=== PATIENT | male | born 1955 | race African-American/Black ===

== ENCOUNTER 2016-11-21 15:59 | Inpatient (IN) | payer MEDICAID, MEDICARE ==
[~2016-11-21] VITALS: Ht 172.7 cm; Wt 86.6 kg
[~2016-11-21 15:59] MED LIST: APIX5TAB PO; ATOR10TA PO; BRIM5DRO3 EACHEYE; DORZ10DR13 EACHEYE; METF-494 PO; TAMS-3 PO; TRAV5DRO EACHEYE
[2016-11-21 16:50] LABS: BASOPHILS % (AUTO) 0.5 % (0.0-2.0); EOSINOPHILS # (AUTO) 0.1 K/uL (0.0-0.7); EOSINOPHILS % (AUTO) 1.5 % (0.0-7.0); HEMATOCRIT 36.5 % (40.0-50.0); HEMOGLOBIN 11.7 g/dL (14.0-18.0); LYMPHOCYTES # (AUTO) 1.5 K/uL (0.8-4.8); LYMPHOCYTES % (AUTO) 16.3 % (20.5-51.5); MEAN CORPUSCULAR HEMOGLOBIN 25.4 uug (27.0-31.0); MEAN CORPUSCULAR HGB CONC 32 g/dL (32.0-37.0); MONOCYTES # (AUTO) 0.6 K/uL (0.1-1.30); MONOCYTES % (AUTO) 6.4 % (0.0-11.0); NEUTROPHILS # (AUTO) 7.2 K/uL (1.8-8.9); NEUTROPHILS % (AUTO) 75.3 % (38.5-71.5); PLATELET COUNT (AUTO) 256 K/uL (150-450); RED BLOOD CELL COUNT(AUTO) 4.62 MIL/uL (4.70-6.10); RED CELL DISTRIBUTION WIDTH 17.5 % (11.5-14.5); WHITE BLOOD COUNT (AUTO) 9.4 K/uL (4.0-11.2)
[2016-11-21 16:58] LABS: CALCIUM 9.5 mg/dL (8.5-10.1); CREATININE 1.3 mg/dL (0.6-1.3); POTASSIUM 4.1 mmol/L (3.5-5.1)
[2016-11-21 17:12] LABS: ALBUMIN 3.8 g/dL (3.4-5.0); BILIRUBIN,DIRECT 0.1 mg/dL (0.0-0.2); BILIRUBIN,TOTAL 0.5 mg/dL (0.2-1.0); TOTAL PROTEIN, SERUM 7.9 g/dL (6.4-8.2)
[2016-11-21 17:52] LABS: ANISOCYTOSIS 1+
[2016-11-21 17:53] LABS: OVALOCYTES 1+
--- NOTE | 2016-11-21 17:57 | NUR ---
Attempted to give report, 2nd Floor RN not available for report at this time, call back pending.
--- NOTE | 2016-11-21 18:16 | NUR ---
2nd floor called to give report, RN is assisting in an ongoing Code Blue, unable to take report at this time. Call back pending.
--- NOTE | 2016-11-21 18:37 | NUR ---
Pt. admitted to Telemetry Room 204 , under care of . Dx: Chest Pain . Report given to Frannie DEXTER @ 2010. Belongs List completed. All belongings taken to unit with patient.
--- NOTE | 2016-11-21 19:00 | NUR ---
PATIENT IN THE ROOM LYING ON BED , C/O ACHING CHEST ON THE LEFT PAIN 7/10. NO SOB NOTED. V/S WNL. WILL CONTINUE OT MONITOR
[2016-11-21 19:09] VITALS: BP 109/81
[2016-11-21] MEDS ORDERED: MAGNESIUM HYDROXIDE 30 ML LIQUID UDC PO PRN (19:30)
[2016-11-21] MEDS ORDERED: ZOLPIDEM 5 MG TABLET PO PRN (19:30)
[2016-11-21] MEDS ORDERED: ONDANSETRON 4 MG/2 ML VIAL IV PRN (19:30)
[2016-11-21] MEDS ORDERED: ACETAMINOPHEN 325 MG TABLET PO PRN (19:30)
[2016-11-21] MEDS ORDERED: HYDROCODONE/APAP 5-325MG TABLET PO PRN (19:30)
[2016-11-21 20:00] VITALS: BP 108/64
[2016-11-21] MEDS ORDERED: TAMSULOSIN HCL 0.4 MG CAP.SR.24H ONE (20:46)
[2016-11-21] MEDS ORDERED: ATORVASTATIN 10 MG TABLET ONE (20:46)
[2016-11-21] MEDS ORDERED: MORPHINE SULFATE 2 MG/1 ML DISP.SYRIN ONE (20:47)
--- NOTE | 2016-11-21 21:00 | NUR ---
MEDICATION GIVEN ORDERED.
[2016-11-21] MEDS: ATORVASTATIN 10 MG TABLET PO SCH (21:07)
[2016-11-21] MEDS: TAMSULOSIN HCL 0.4 MG CAP.SR.24H PO SCH (21:07)
[2016-11-21] MEDS: MORPHINE SULFATE 2 MG/1 ML DISP.SYRIN IV PRN (21:08)
[2016-11-21] MEDS ORDERED: DEXTROSE 50% 50 ML DISP.SYRIN IV PRN (21:45)
[2016-11-21] MEDS: BLOOD SUGAR DIAGNOSTIC 1 EACH STRIP VI SCH (21:47)
[2016-11-22 00:41] VITALS: BP 115/75
[2016-11-22] MEDS: MORPHINE SULFATE 2 MG/1 ML DISP.SYRIN IV PRN ×2 (03:17→11:52)
[2016-11-22] MEDS ORDERED: MORPHINE SULFATE 2 MG/1 ML DISP.SYRIN ONE (03:23)
--- NOTE | 2016-11-22 05:46 | NUR ---
PATIENT INTERMITTENTLY SLEEPING. PRN PAIN MEDICATION ADMINISTERED ON C/O CHEST PAIN. SR ON THE MONITOR. V/S WNL. PATIENT IN STABLE CONDITION. CALL LIGHT IN REACH.
[2016-11-22] MEDS: BLOOD SUGAR DIAGNOSTIC 1 EACH STRIP VI SCH ×4 (06:23→21:07)
[2016-11-22 06:29] VITALS: BP 120/65
[2016-11-22 06:47] LABS: BASOPHILS % (AUTO) 0.6 % (0.0-2.0); EOSINOPHILS # (AUTO) 0.3 K/uL (0.0-0.7); EOSINOPHILS % (AUTO) 3.8 % (0.0-7.0); HEMATOCRIT 33.3 % (40.0-50.0); HEMOGLOBIN 10.9 g/dL (14.0-18.0); LYMPHOCYTES # (AUTO) 1.7 K/uL (0.8-4.8); LYMPHOCYTES % (AUTO) 24.8 % (20.5-51.5); MEAN CORPUSCULAR HGB CONC 33 g/dL (32.0-37.0); MEAN CORPUSCULAR VOLUME 79.2 fL (82.0-92.0); MONOCYTES # (AUTO) 0.8 K/uL (0.1-1.30); MONOCYTES % (AUTO) 11.3 % (0.0-11.0); NEUTROPHILS # (AUTO) 3.9 K/uL (1.8-8.9); NEUTROPHILS % (AUTO) 59.5 % (38.5-71.5); PLATELET COUNT (AUTO) 229 K/uL (150-450); RED CELL DISTRIBUTION WIDTH 17.6 % (11.5-14.5); WHITE BLOOD COUNT (AUTO) 6.7 K/uL (4.0-11.2)
[2016-11-22 07:32] LABS: CALCIUM 8.9 mg/dL (8.5-10.1); CREATININE 1.2 mg/dL (0.6-1.3); MAGNESIUM 1.8 mg/dL (1.8-2.4); PHOSPHOROUS 3.8 mg/dL (2.5-4.9); POTASSIUM 3.7 mmol/L (3.5-5.1)
[2016-11-22] MEDS: BRIMONIDINE-P 0.1% OPHTH DROP 5 ML DROPS EACHEYE SCH ×2 (08:02→16:14)
[2016-11-22] MEDS ORDERED: DORZOLAMIDE/TIMOLOL OPHT DROP 10 ML BOTTLE EACHEYE SCH (09:00)
[2016-11-22] MEDS ORDERED: Medication Not On Formulary EA (Metformin Hcl (Metformin Hcl Er) 1 TAB) PO SCH (09:00)
[2016-11-22] MEDS ORDERED: METF500T4 PO (10:34)
[2016-11-22] MEDS: METFORMIN HCL 500 MG TABLET PO SCH ×2 (10:44→17:01)
[2016-11-22] MEDS: INSULIN REGULAR, HUMAN 300 UNIT/3 ML VIAL SQ PRN ×2 (10:53→16:31)
[2016-11-22 11:12] VITALS: BP 108/61
[2016-11-22] MEDS: DORZOLAMIDE/TIMOLOL OPHT DROP 10 ML BOTTLE EACHEYE SCH ×2 (11:50→16:14)
[2016-11-22] MEDS: APIXABAN 5 MG TABLET PO SCH ×2 (11:50→16:15)
[2016-11-22 15:15] VITALS: BP 110/58
[2016-11-22 20:00] VITALS: BP 102/65
--- NOTE | 2016-11-22 20:00 | NUR ---
RECEIVED PATIENT AWAKE IN BED WATCHING TV. PATIENT IS A/O X4. DENIES CHEST PAIN OR ANY OTHER PAIN AT THIS TIME. NO RESP. DISTRESS NOTED. ON TELE SR. VSS. H/L INTACT AND PATENT. CALL LIGHT IN REACH. ALL NEEDS ATTENDED. WILL CONTINUE TO MONITOR.
[2016-11-22] MEDS: ATORVASTATIN 10 MG TABLET PO SCH (20:25)
[2016-11-22] MEDS: LATANOPROST OPHT DROP 2.5 ML BOTTLE EACHEYE SCH (20:25)
[2016-11-22] MEDS: TAMSULOSIN HCL 0.4 MG CAP.SR.24H PO SCH (20:25)
[2016-11-23] VITALS: BP 103/66
[2016-11-23 04:00] VITALS: BP 109/64
[2016-11-23] MEDS: BLOOD SUGAR DIAGNOSTIC 1 EACH STRIP VI SCH ×3 (06:55→16:40)
--- NOTE | 2016-11-23 06:59 | NUR ---
PATIENT AWAKE IN BED. ON TELE SR. PATIENT HAD A EPISODE OF 2ND DEGREE AV BLOCK TYPE 2, 2 BEATS. VSS. DENIES CHEST PAIN OR ANY OTHER DISCOMFORT. NO RESP. DISTRESS NOTED. SLEPT WELL THROUGHOUT THE NIGHT. CALL LIGHT IN REACH. ALL NEEDS ATTENDED. WILL CONTINUE TO MONITOR.
--- NOTE | 2016-11-23 08:00 | NUR ---
resting in bed, ambulatory, denies of pain at his time, no dyspnea Tele- SR. explained plan of care- verbalized understanding. neddsa ttended, safety measures maintained
[2016-11-23] MEDS: METFORMIN HCL 500 MG TABLET PO SCH ×2 (08:47→17:21)
[2016-11-23] MEDS: BRIMONIDINE-P 0.1% OPHTH DROP 5 ML DROPS EACHEYE SCH ×2 (08:48→16:41)
[2016-11-23] MEDS: DORZOLAMIDE/TIMOLOL OPHT DROP 10 ML BOTTLE EACHEYE SCH ×2 (08:48→16:40)
[2016-11-23] MEDS: APIXABAN 5 MG TABLET PO SCH ×2 (08:54→16:39)
[2016-11-23] MEDS: MORPHINE SULFATE 2 MG/1 ML DISP.SYRIN IV PRN ×3 (09:26→21:52)
[2016-11-23 11:32] VITALS: BP 111/74
--- NOTE | 2016-11-23 12:16 | NUR ---
PATIENT FLY PABLO REQUESTING A BILATERAL LOW EXTREMITY DOPPLER, STATES HISTORY OF BLOOD CLOTS, AND A TREAD MILL TEST, STATES HASEN,T HAD SUCH AN EXAM IN A WHILE. DR HUFF INFORMED OF PATIENTS REQUEST.
[2016-11-23 16:02] VITALS: BP 112/71
--- NOTE | 2016-11-23 17:43 | NUR ---
resting in bed, medicated for pain x 2 this shift with relief, all needs attended and met, up and about in the room, downgraded to medsurg this shift, no distress noted, call lite within reach
[2016-11-23 19:00] VITALS: BP 102/67
[2016-11-23] MEDS: ATORVASTATIN 10 MG TABLET PO SCH (21:27)
[2016-11-23] MEDS: TAMSULOSIN HCL 0.4 MG CAP.SR.24H PO SCH (21:27)
[2016-11-23] MEDS: LATANOPROST OPHT DROP 2.5 ML BOTTLE EACHEYE SCH (22:01)
[2016-11-24] MEDS: BLOOD SUGAR DIAGNOSTIC 1 EACH STRIP VI SCH ×5 (01:20→21:39)
--- NOTE | 2016-11-24 01:23 | NUR ---
aCCUCHECK AT 2100 WAS 84
[2016-11-24] MEDS: MORPHINE SULFATE 2 MG/1 ML DISP.SYRIN IV PRN ×2 (02:14→21:33)
[2016-11-24 04:00] VITALS: BP 108/64
--- NOTE | 2016-11-24 04:27 | NUR ---
pT IS resting in bed, medicated for pain x 2 this shift with relief,cARDIOLOGIEST TA all needs attended and met, up and about in the room, no distress noted, call lite within reach
--- NOTE | 2016-11-24 08:00 | NUR ---
received pt, a/o x4, no c/o chest pain or pressure or sob. ambulatory in room, tolerates activity well. saline lock intact rt forarm, site clean with no redness, swelling. tolerating diet well. no distress.
[2016-11-24] MEDS: BRIMONIDINE-P 0.1% OPHTH DROP 5 ML DROPS EACHEYE SCH ×2 (08:39→17:35)
[2016-11-24] MEDS: METFORMIN HCL 500 MG TABLET PO SCH ×2 (08:40→17:35)
[2016-11-24] MEDS: APIXABAN 5 MG TABLET PO SCH ×2 (08:40→17:36)
[2016-11-24] MEDS: DORZOLAMIDE/TIMOLOL OPHT DROP 10 ML BOTTLE EACHEYE SCH ×2 (08:40→17:35)
[2016-11-24 11:45] VITALS: BP 107/62
[2016-11-24 16:11] VITALS: BP 106/71
--- NOTE | 2016-11-24 18:25 | NUR ---
refused accucheck at 1130. cont to tolerate diet well. remained in room throughout shift, ambulates in room tolerating all activity well. no c/o chest pain or pressure or sob. no distress throughout shift. Dr. Cox into see pt. discharge orders written. pt in process of appealing discharge. awaiting decision.
[2016-11-24 19:00] VITALS: BP 105/64
[2016-11-24] MEDS: TAMSULOSIN HCL 0.4 MG CAP.SR.24H PO SCH (21:33)
[2016-11-24] MEDS: ATORVASTATIN 10 MG TABLET PO SCH (21:33)
[2016-11-24] MEDS: LATANOPROST OPHT DROP 2.5 ML BOTTLE EACHEYE SCH (21:39)
--- NOTE | 2016-11-25 01:32 | NUR ---
PATIENT NOTED AMBULATING TO THE BATHROOM AT THIS TIME,PATIENT IS STABLE AT THIS TIME ,ALL DUE MEDS WELL NURSING CARE GIVEN AND WELL TOLERATED.BLOOD SUGAR WITHIN NORMAL RANGE .PATIENT CONTINUED TO BE MONITORED
[2016-11-25 04:00] VITALS: BP 104/61
--- NOTE | 2016-11-25 06:58 | NUR ---
PATIENT STABLE.NO FURTHER COMPLAIN OF PAIN NOTED .
[2016-11-25] MEDS: BLOOD SUGAR DIAGNOSTIC 1 EACH STRIP VI SCH ×2 (07:30→10:44)
--- NOTE | 2016-11-25 07:30 | NUR ---
PT RECEIVED IN BED SLEEPING,V/S ARE STABLE ,NO NEW NEEDS NOTED.
[2016-11-25] MEDS: METFORMIN HCL 500 MG TABLET PO SCH (08:04)
[2016-11-25] MEDS: APIXABAN 5 MG TABLET PO SCH (08:04)
[2016-11-25] MEDS: DORZOLAMIDE/TIMOLOL OPHT DROP 10 ML BOTTLE EACHEYE SCH (08:05)
[2016-11-25] MEDS: BRIMONIDINE-P 0.1% OPHTH DROP 5 ML DROPS EACHEYE SCH (08:05)
[2016-11-25] MEDS: INSULIN REGULAR, HUMAN 300 UNIT/3 ML VIAL SQ PRN (11:14)
[2016-11-25 11:45] VITALS: BP 107/56
--- NOTE | 2016-11-25 12:45 | NUR ---
12:10 Called Stephani [ ; ; Control ID#[id number]] for a follow-up on the patient's appeal. She transferred the call to Timoteo who stated that the patient did not win the appeal and he needs to be discharged. He also stated that he heard that the patient is banned from Medicare and is being investigated for abusing Medicare benefits. Timoteo was also informed that [employer] is being billed this hospitalization and not Medicare. Updated the patient and he stated he wants to hear from Stephani about their decision. 12:41 Brandee from [facility] called this title closer because the patient asked her for Medicare to cover him because the [employer] can not be billed anymore. Informed her that [employer] is being billed and that the patient has exhausted his Medicare benefits for acute hospitals. He will call the patient and inform him that he must be discharged.
--- NOTE | 2016-11-25 13:56 | NUR ---
D/C ORDERS RECEIVED NOTED AND CARRIED OUT.D/C INSTRUCTIONS AND EDUCATIONS GIVEN TO THE PT.D/C HEPLOCK PER MD ORDERS.PT LEFT THE FACILITY VIA WALKING FROM THE HOSPITAL .
== END 2016-11-25 13:58 | disposition home or self-care (01) | DRG 861 ==
LOC: ER 15:59 → TELE 18:28 → MED 11-23 10:10
PROVIDERS: ADMIT Internal Medicine; ATTEND Internal Medicine
DX: Z76.5 Malingerer [conscious simulation] (principal); I44.2 Atrioventricular block, complete; I50.32 Chronic diastolic (congestive) heart failure; Z86.711 Personal history of pulmonary embolism; E78.5 Hyperlipidemia, unspecified; H40.9 Unspecified glaucoma; E66.9 Obesity, unspecified; Z68.29 Body mass index [BMI] 29.0-29.9, adult; Z98.890 Other specified postprocedural states; Z88.5 Allergy status to narcotic agent; Z91.018 Allergy to other foods; E11.9 Type 2 diabetes mellitus without complications; Z59.0 Homelessness; Z79.01 Long term (current) use of anticoagulants; Z79.84 Long term (current) use of oral hypoglycemic drugs; Z79.899 Other long term (current) drug therapy; H54.7 Unspecified visual loss
CPT/HCPCS: 36415; 70030-TC; 71010; 83735; 84100; 85025; 85730; 93005; A4663; J1815; J2270

== ENCOUNTER 2017-01-04 19:51 | Emergency (ER) | payer MEDICARE, MEDICAID ==
[~2017-01-04] VITALS: Ht 172.7 cm; Wt 88.5 kg
[~2017-01-04 19:51] MED LIST changes: -METF-494 PO; +METF500T4 PO
[2017-01-04] MEDS: ASPIRIN 325 MG TABLET PO ONE (20:30)
[2017-01-04 20:37] LABS: BASOPHILS % (AUTO) 0.4 % (0.0-2.0); EOSINOPHILS # (AUTO) 0.2 K/uL (0.0-0.7); HEMATOCRIT 35.7 % (36.7-47.1); HEMOGLOBIN 11.6 g/dL (12.5-16.3); LYMPHOCYTES # (AUTO) 1.7 K/uL (20.0-40.0); LYMPHOCYTES % (AUTO) 20.9 % (20.5-51.5); MEAN CORPUSCULAR HEMOGLOBIN 25.8 uug (23.8-33.4); MEAN CORPUSCULAR HGB CONC 33 g/dL (32.5-36.3); MEAN CORPUSCULAR VOLUME 78.9 fL (73.0-96.2); MONOCYTES # (AUTO) 0.5 K/uL (2.0-10.0); MONOCYTES % (AUTO) 5.8 % (0.0-11.0); NEUTROPHILS # (AUTO) 5.9 K/uL (1.8-8.9); NEUTROPHILS % (AUTO) 69.9 % (38.5-71.5); PLATELET COUNT (AUTO) 217 K/uL (152-348); RED BLOOD CELL COUNT(AUTO) 4.52 MIL/uL (4.06-5.63); RED CELL DISTRIBUTION WIDTH 15.9 % (12.1-16.2); WHITE BLOOD COUNT (AUTO) 8.3 K/uL (3.6-10.2)
[2017-01-04] MEDS ORDERED: NITROGLYCERIN 4.9 GM SPRAY TL ONE (20:41)
[2017-01-04] MEDS ORDERED: ASPIRIN 325 MG TABLET ONE (20:41)
[2017-01-04] MEDS: NITROGLYCERIN 4.9 GM SPRAY TL ONE (20:45)
[2017-01-04 20:49] LABS: BILIRUBIN,TOTAL 0.3 mg/dL (0.2-1.0); CALCIUM 9.8 mg/dL (8.5-10.1); CREATININE 1.3 mg/dL (0.6-1.3); POTASSIUM 4.4 mmol/L (3.5-5.1)
[2017-01-04 20:50] LABS: ALBUMIN 3.8 g/dL (3.4-5.0); BILIRUBIN,DIRECT 0.1 mg/dL (0.0-0.2); TOTAL PROTEIN, SERUM 7.7 g/dL (6.4-8.2)
--- NOTE | 2017-01-04 21:30 | NUR ---
pt refusting CTA due to allergies to iodine and seafood....
--- NOTE | 2017-01-04 22:20 | NUR ---
pt advised that GUERA advised for pulmonary VQ scan, pt stating he wanted to speak to family member first... pt refused to share with GUERA the concerns he had regarding pulmonary VQ scan, guera explained importance of procedure, pt still refusing to participate with plan of care, Nurse advised pt to make decision as procedure needed to r/o Pulmonary embolism due to pt has a history of PE... pt became irrate, began yelling stating "if you dont get out of here I'm gonna punch you in the face." GUERA again attempted to speak with pt regarding concerns, pt again refused to share his concerns regarding scan...
--- NOTE | 2017-01-04 22:57 | NUR ---
Patient does not wish to proceed with medical care recommended by Dr. Molina ). Patient given information related to possible complications, up to and including , which could occur as a result of leaving the hospital at this time. Patient verbalizes understanding of risks involved due to leaving against medical advice. Patient refused to sign AMA form. pt walked out of ER unassisted with belongings at side...
[2017-01-04 23:01] VITALS: BP 109/82
== END 2017-01-04 23:03 | disposition left against medical advice (07) ==
LOC: ER 19:56
DX: R07.9 Chest pain, unspecified (principal); E11.9 Type 2 diabetes mellitus without complications; E78.5 Hyperlipidemia, unspecified; E66.9 Obesity, unspecified; Z88.6 Allergy status to analgesic agent; Z88.8 Allergy status to other drugs, medicaments and biological substances; Z76.5 Malingerer [conscious simulation]; Z79.01 Long term (current) use of anticoagulants; Z86.711 Personal history of pulmonary embolism
CPT/HCPCS: 36415; 70030-TC; 71010; 85025; 85730; 93005; A4663; J3535

== ENCOUNTER 2017-01-05 17:29 | Emergency (ER) | payer MEDICARE, MEDICAID ==
[~2017-01-05] VITALS: Ht 172.7 cm; Wt 86.6 kg
[2017-01-05] MEDS ORDERED: ASPIRIN 325 MG TABLET PO ONE (17:45)
--- NOTE | 2017-01-05 17:48 | NUR ---
Pt asked who the on-coming physician is going to be, when I replied it's going to be Dr Soni, pt stated he saw her last night and does not want to see her again and walked out. Stressed follow up.
== END 2017-01-05 17:51 | disposition left against medical advice (07) ==
LOC: ER 17:33
DX: R07.9 Chest pain, unspecified (principal); Z53.21 Procedure and treatment not carried out due to patient leaving prior to being seen by health care provider
CPT/HCPCS: 93005; A4663

== ENCOUNTER 2017-02-09 11:10 | Inpatient (IN) | payer MEDICARE, MEDICAID ==
[~2017-02-09] VITALS: Ht 172.7 cm; Wt 86.6 kg
--- NOTE | 2017-02-09 11:20 | NUR ---
MD at bedside evaluating the patient. OLD electrode stickers are still seen on patient's skin.
[2017-02-09] MEDS ORDERED: NITROGLYCERIN 0.4 MG/TAB BOTTLE SL ONE ×2 (11:41→11:45)
[2017-02-09 11:46] LABS: BASOPHILS % (AUTO) 0.6 % (0.0-2.0); EOSINOPHILS # (AUTO) 0.1 K/uL (0.0-0.7); EOSINOPHILS % (AUTO) 2.6 % (0.0-7.0); HEMATOCRIT 32.5 % (40-50); HEMOGLOBIN 10.8 G/DL (14.0-18.0); LYMPHOCYTES # (AUTO) 1.3 K/UL (0.8-4.8); MEAN CORPUSCULAR HGB CONC 33 g/dL (32.0-37.0); MEAN CORPUSCULAR VOLUME 78.4 FL (82.0-92.0); MONOCYTES # (AUTO) 0.6 K/UL (0.1-1.30); MONOCYTES % (AUTO) 10.6 % (0.0-11.0); NEUTROPHILS # (AUTO) 3.7 K/UL (1.8-8.9); NEUTROPHILS % (AUTO) 63.2 % (38.5-71.5); PLATELET COUNT (AUTO) 186 K/UL (150-450); RED BLOOD CELL COUNT(AUTO) 4.14 MIL/UL (4.7-6.1); WHITE BLOOD COUNT (AUTO) 5.7 K/UL (4.0-11.2)
[2017-02-09 12:01] LABS: BILIRUBIN,TOTAL 0.4 mg/dL (0.2-1.0); CREATININE 1.1 mg/dL (0.6-1.3); POTASSIUM 3.9 mmol/L (3.5-5.1); TOTAL PROTEIN, SERUM 7.4 g/dL (6.4-8.2)
[2017-02-09] MEDS ORDERED: IV NORMAL SALINE 500 ML IV ONE (12:15)
[2017-02-09] MEDS ORDERED: MORPHINE SULFATE 2 MG/1 ML DISP.SYRIN IV ONE (12:15)
[2017-02-09] MEDS ORDERED: MORPHINE SULFATE 2 MG/1 ML DISP.SYRIN ONE (12:16)
--- NOTE | 2017-02-09 13:08 | NUR ---
Immediately after the morphine. pt wants food notified.
--- NOTE | 2017-02-09 13:22 | NUR ---
Lunch tray provided. Repeat EKG being done by ISACC Acevedo.
--- NOTE | 2017-02-09 13:33 | NUR ---
Patient is eating lunch tray with good appetite.
--- NOTE | 2017-02-09 13:49 | NUR ---
Patient ate 100% of the lunch tray. Pt. is admitted to telemetry 222 , under care of Dr. Cheko Michelle. Belongings List completed. MRSA swab sent to lab.
[2017-02-09 14:17] VITALS: BP 128/68
--- NOTE | 2017-02-09 14:32 | NUR ---
PT CHEST PAIN 04/22. ASKING FOR PAIN MEDICATION. PT WAS GIVEN 2 MG MORPHINE IN ER 1 HOUR AGO. EXPLAINED TO PT THAT ADMISSION PROTOCOL MUST BE FOLLOWED AND WILL NOTIFY DR OF ARRIVAL AND PAIN NEEDS SOON IT IS FINISHED. PT VERBALIZED UNDERSTANDING BUT WOULD NOT SIT STILL, UNPACKING BELONGINGS AND PLUGGING IN PHONE AND DVD PLAYER. ASKED PT TO SIT DOWN SO THAT I COULD PERFORM ASSESSMENT, PT LET OUT A BIG SIGH WHEN ASKED TO SIT DOWN. ASSESSMENT PERFORMED, PT IMMEDIATELY GOT UP AND STARTED UNPACKING BACK PACK, ADMISSION COMPLETED, CALL LIGHT IN REACH, WILL NOTIFY DR OF ARRIVAL AND FOLLOW THROUGH WITH ORDERS
[2017-02-09] MEDS ORDERED: ZOLPIDEM 5 MG TABLET PO PRN (15:00)
[2017-02-09] MEDS ORDERED: ACETAMINOPHEN 325 MG TABLET PO PRN (15:00)
[2017-02-09] MEDS ORDERED: ONDANSETRON 4 MG/2 ML VIAL IV PRN (15:00)
[2017-02-09] MEDS ORDERED: MAGNESIUM HYDROXIDE 30 ML LIQUID UDC PO PRN (15:00)
[2017-02-09] MEDS ORDERED: Z GUARD REMEDY PASTE 57 GM TUBE TOP PRN (15:00)
[2017-02-09 15:06] VITALS: BP 124/78
[2017-02-09] MEDS: ISOSORBIDE MONONITRATE 30 MG TAB.SR.24H PO SCH (15:25)
[2017-02-09] MEDS: ASPIRIN 81 MG TAB.CHEW GT SCH (15:25)
[2017-02-09] MEDS ORDERED: APIXABAN 5 MG TABLET PO SCH (17:00)
[2017-02-09] MEDS ORDERED: BRIMONIDINE-P 0.1% OPHTH DROP 5 ML DROPS EACHEYE SCH (17:00)
[2017-02-09] MEDS: DORZOLAMIDE/TIMOLOL OPHT DROP 10 ML BOTTLE EACHEYE SCH (17:11)
[2017-02-09] MEDS: BRIMONIDINE 0.2% OPHT DROP 10 ML BOTTLE EACHEYE SCH (17:11)
[2017-02-09] MEDS: ELIQUIS 5 MG PO SCH (17:11)
[2017-02-09] MEDS: METFORMIN HCL 500 MG TABLET PO SCH (17:11)
--- NOTE | 2017-02-09 18:34 | NUR ---
pts own medications sent to pharmacy, pt reji gi n bed, all needs attended to, call light in reach
[2017-02-09 19:00] VITALS: BP 93/50
--- NOTE | 2017-02-09 19:15 | NUR ---
Received report from ISACC Kline
--- NOTE | 2017-02-09 19:30 | NUR ---
Received patient awake on bed. Denies any pain/discomfort at this time. continue care as planned.
[2017-02-09] MEDS: MORPHINE SULFATE 2 MG/1 ML DISP.SYRIN IV PRN ×2 (20:03→23:44)
--- NOTE | 2017-02-09 20:03 | NUR ---
Complaint of low back pain in scale of 8/10, Morphine 2 mg IVP given as ordered and needed. Will monitor.
--- NOTE | 2017-02-09 20:35 | NUR ---
Denies pain at this time, pain meds effective.
[2017-02-09] MEDS ORDERED: TRAVOPROST 0.004% OPHT DROP 2.5 ML BOTTLE EACHEYE SCH (21:00)
[2017-02-09] MEDS ORDERED: TAMSULOSIN HCL 0.4 MG CAP.SR.24H PO SCH (21:00)
[2017-02-09] MEDS ORDERED: LATANOPROST OPHT DROP 2.5 ML BOTTLE EACHEYE SCH (21:00)
--- NOTE | 2017-02-09 23:45 | NUR ---
Complaint of low back pain, medicated as ordered and needed. Will monitor.
--- NOTE | 2017-02-10 00:15 | NUR ---
Sleeping during rounds. No s/s of respiratory distress noted.
[2017-02-10] MEDS: MORPHINE SULFATE 2 MG/1 ML DISP.SYRIN IV PRN (06:27)
[2017-02-10 06:56] LABS: BILIRUBIN,TOTAL 0.3 mg/dL (0.2-1.0); CREATININE 1.2 mg/dL (0.6-1.3); MAGNESIUM 1.8 mg/dL (1.8-2.4); PHOSPHOROUS 3.5 mg/dL (2.5-4.9); POTASSIUM 4.2 mmol/L (3.5-5.1); TOTAL PROTEIN, SERUM 6.4 g/dL (6.4-8.2)
[2017-02-10 06:58] LABS: THYROID STIMULATING HORMONE 1.255 mIU/mL (0.358-3.740)
[2017-02-10] MEDS ORDERED: PANTOPRAZOLE SODIUM 40 MG TABLET.DR PO SCH (07:00)
[2017-02-10] MEDS: ASPIRIN 81 MG TAB.CHEW GT SCH (08:42)
[2017-02-10] MEDS: METFORMIN HCL 500 MG TABLET PO SCH (08:42)
[2017-02-10] MEDS: DORZOLAMIDE/TIMOLOL OPHT DROP 10 ML BOTTLE EACHEYE SCH (08:42)
[2017-02-10] MEDS: BRIMONIDINE 0.2% OPHT DROP 10 ML BOTTLE EACHEYE SCH (08:42)
[2017-02-10] MEDS: ISOSORBIDE MONONITRATE 30 MG TAB.SR.24H PO SCH (08:43)
[2017-02-10] MEDS: ELIQUIS 5 MG PO SCH (08:43)
--- NOTE | 2017-02-10 08:45 | NUR ---
PT REFUSED IMDUR, STATING "ILL PASS ON THAT BECAUSE IM GETTING THE MORPHINE" EXPLAINED TO PT THAT IMDUR WAS SPECIFICALLY FOR ANGINA AND THAT I WOULD NEED TO CHECK BLOOD PRESSURE PRIOR TO GIVING. PT REFUSED. PHARMACIST ENTERED ROOM AT THIS TIME AND EXPLAINED IT AGAIN TO PT AND PT STILL REFUSING. PT REFUSING BLOOD PRESSURE CHECK AT THIS TIME.
[2017-02-10 08:53] LABS: BASOPHILS % (AUTO) 0.7 % (0.0-2.0); EOSINOPHILS # (AUTO) 0.2 K/uL (0.0-0.7); EOSINOPHILS % (AUTO) 4.2 % (0.0-7.0); HEMATOCRIT 30.5 % (40-50); HEMOGLOBIN 9.9 G/DL (14.0-18.0); LYMPHOCYTES # (AUTO) 1.3 K/UL (0.8-4.8); LYMPHOCYTES % (AUTO) 26.2 % (20.5-51.5); MEAN CORPUSCULAR HEMOGLOBIN 25.8 UUG (27.0-31.0); MEAN CORPUSCULAR HGB CONC 32 g/dL (32.0-37.0); MEAN CORPUSCULAR VOLUME 79.6 FL (82.0-92.0); MONOCYTES # (AUTO) 0.6 K/UL (0.1-1.30); MONOCYTES % (AUTO) 11.1 % (0.0-11.0); NEUTROPHILS % (AUTO) 57.8 % (38.5-71.5); PLATELET COUNT (AUTO) 181 K/UL (150-450); RED BLOOD CELL COUNT(AUTO) 3.84 MIL/UL (4.7-6.1); WHITE BLOOD COUNT (AUTO) 5.1 K/UL (4.0-11.2)
[2017-02-10] MEDS ORDERED: ASPIRIN EC 81 MG TABLET.DR PO SCH (09:00)
[2017-02-10] MEDS ORDERED: ATORVASTATIN 10 MG TABLET PO SCH (09:00)
[2017-02-10 12:10] VITALS: BP 111/73
[2017-02-10] MEDS ORDERED: ASPI81TA31 GT (14:09)
[2017-02-10] MEDS ORDERED: Isosorbide Mononitrate PO (14:09)
--- NOTE | 2017-02-10 16:02 | NUR ---
DISCHARGE PROTOCOL FOLLOWED, PT REFUSED PRESCRIPTION, PT WAS ADVISED TO FOLLOW UP WITH PRIMARY MD AND ACCESS NURSE, PT WAS GIVEN [facility] OFFICE NUMBER TO FOLLOW UP WITH. PT VERBALIZED UNDERSTANDING. IV REMOVED WITH NO REDNESS OR IRRITATION NOTED, ID BAND REMOVED. ALL BELONGINGS ACCOUNTED FOR AND RETURNED TO PT, PT LEFT AMBULATORY IN PRIVATE CAR.
== END 2017-02-10 15:45 | disposition home or self-care (01) | DRG 206 ==
LOC: ER 11:10 → TELE 13:50
PROVIDERS: ADMIT Nurse Practitioner Acute Care; ATTEND Nurse Practitioner Acute Care
DX: M94.0 Chondrocostal junction syndrome [Tietze] (principal); I10 Essential (primary) hypertension; I25.2 Old myocardial infarction; E78.5 Hyperlipidemia, unspecified; I27.2 Other secondary pulmonary hypertension; Z86.711 Personal history of pulmonary embolism; Z82.49 Family history of ischemic heart disease and other diseases of the circulatory system; H40.9 Unspecified glaucoma; Z98.890 Other specified postprocedural states; Z86.79 Personal history of other diseases of the circulatory system; Z79.01 Long term (current) use of anticoagulants; Z88.5 Allergy status to narcotic agent; Z91.041 Radiographic dye allergy status; Z76.5 Malingerer [conscious simulation]; R73.03 Prediabetes; Z83.3 Family history of diabetes mellitus; D50.9 Iron deficiency anemia, unspecified
CPT/HCPCS: 36415; 70030-TC; 71010; 83735; 84100; 84443; 85025; 85610; 93005; 93307; A4663; J2270; J7040

== ENCOUNTER 2017-03-23 20:42 | Emergency (ER) | payer MEDICARE, MEDICAID ==
[~2017-03-23] VITALS: Ht 172.7 cm; Wt 86.2 kg
[~2017-03-23 20:42] MED LIST changes: +ASPI81TA31 GT; +Isosorbide Mononitrate PO
--- NOTE | 2017-03-23 20:52 | NUR ---
PATIENT WALKED INTO ER C/O 04/22 LEFT CHEST WALL PAIN DESCRIBING PAIN PRESSURE THAT STARTED 1.5HR PRIOR TO ARRIVAL, PT IS ALERT, ORIENTED X 4, NO RESP DISTRESS NOTED OR REPORTED UPON ASSESSMENT... MD AT BEDSIDE...
[2017-03-23] MEDS ORDERED: NITROGLYCERIN 0.4 MG/TAB BOTTLE SL ONE ×2 (21:00→21:31)
[2017-03-23] MEDS: IV NORMAL SALINE 500 ML BAG IV ONE ×2 (21:10→21:22)
[2017-03-23 21:20] LABS: BASOPHILS % (AUTO) 0.5 % (0.0-2.0); EOSINOPHILS # (AUTO) 0.2 K/uL (0.0-0.7); EOSINOPHILS % (AUTO) 2.7 % (0.0-7.0); HEMATOCRIT 37.9 % (40-50); HEMOGLOBIN 11.7 G/DL (14.0-18.0); LYMPHOCYTES # (AUTO) 1.6 K/UL (0.8-4.8); LYMPHOCYTES % (AUTO) 22.7 % (20.5-51.5); MEAN CORPUSCULAR HEMOGLOBIN 24.6 UUG (27.0-31.0); MEAN CORPUSCULAR HGB CONC 31 g/dL (32.0-37.0); MEAN CORPUSCULAR VOLUME 79.6 FL (82.0-92.0); MONOCYTES # (AUTO) 0.9 K/UL (0.1-1.30); MONOCYTES % (AUTO) 13.2 % (0.0-11.0); NEUTROPHILS # (AUTO) 4.4 K/UL (1.8-8.9); NEUTROPHILS % (AUTO) 60.9 % (38.5-71.5); PLATELET COUNT (AUTO) 224 K/UL (150-450); RED BLOOD CELL COUNT(AUTO) 4.76 MIL/UL (4.7-6.1); WHITE BLOOD COUNT (AUTO) 7.1 K/UL (4.0-11.2)
[2017-03-23 21:23] LABS: CREATININE 1.2 mg/dL (0.6-1.3); POTASSIUM 3.7 mmol/L (3.5-5.1)
--- NOTE | 2017-03-23 22:13 | NUR ---
Patient discharged to home in stable conditon. Written and verbal after care instructions given. Patient verbalizes understanding of instructions. Ambulated from ER with stable gait. All belongings with patient.
[2017-03-23 22:14] VITALS: BP 121/68
== END 2017-03-23 22:15 | disposition home or self-care (01) ==
LOC: ER 20:43
DX: R07.89 Other chest pain (principal); E11.9 Type 2 diabetes mellitus without complications; H40.9 Unspecified glaucoma; E78.5 Hyperlipidemia, unspecified; E66.9 Obesity, unspecified; Z79.82 Long term (current) use of aspirin; Z79.01 Long term (current) use of anticoagulants; Z86.711 Personal history of pulmonary embolism
CPT/HCPCS: 36415; 70030-TC; 71010; 85025; 85730; 93005; A4663; J7040

== ENCOUNTER 2017-06-07 20:35 | Emergency (ER) | payer MEDICARE, MEDICAID ==
[~2017-06-07] VITALS: Ht 172.7 cm; Wt 86.6 kg
[~2017-06-07 20:35] MED LIST changes: -Isosorbide Mononitrate PO
--- NOTE | 2017-06-07 20:47 | NUR ---
Pt ambulated to room with steady gait. Pt c/o 8/10 non-radiating pressure to L chest, started approx 45 mins ago s/p helping to push a car. Pt denies SOB, denies dizziness, denies light-headedness. Pt NSR on monitor. Resp even and unlabored. EKG obtained given to Dr. Molina. Lab at bedside. Pt resting in position of comfort for self at this time.
--- NOTE | 2017-06-07 21:04 | NUR ---
xray at bedside
--- NOTE | 2017-06-07 21:46 | NUR ---
Pt cont to c/o discomfort. Dr. Molina notified. Pt refused norco and requested tylenol. Pt medicated for discomfort. Pt stable for discharge per Dr. Molina. Pt given ACI, refused to sign dc papers. Pt ambulated out of ER with steady gait.
[2017-06-07 21:50] VITALS: BP 134/82
== END 2017-06-07 21:51 | disposition home or self-care (01) ==
LOC: ER 20:36
DX: R07.89 Other chest pain (principal); Z86.711 Personal history of pulmonary embolism; E11.9 Type 2 diabetes mellitus without complications; H40.9 Unspecified glaucoma; Z88.6 Allergy status to analgesic agent; Z88.5 Allergy status to narcotic agent
CPT/HCPCS: 36415; 70030-TC; 71010; 93005; A4663

== ENCOUNTER 2017-09-07 22:03 | Emergency (ER) | payer MEDICARE, MEDICAID ==
[~2017-09-07] VITALS: Ht 172.7 cm; Wt 88.5 kg
--- NOTE | 2017-09-07 22:10 | NUR ---
Pt is received alert, responsive as he came in c/o chest pain x2hrs. His care continue as awaits MD orders.
[2017-09-07 22:46] LABS: BASOPHILS % (AUTO) 0.5 % (0.0-2.0); EOSINOPHILS # (AUTO) 0.2 K/uL (0.0-0.7); EOSINOPHILS % (AUTO) 2.5 % (0.0-7.0); HEMATOCRIT 42.2 % (36.7-47.1); HEMOGLOBIN 14.1 g/dL (12.5-16.3); LYMPHOCYTES # (AUTO) 1.7 K/uL (20.0-40.0); LYMPHOCYTES % (AUTO) 22.6 % (20.5-51.5); MEAN CORPUSCULAR HEMOGLOBIN 28.9 uug (23.8-33.4); MEAN CORPUSCULAR HGB CONC 33 g/dL (32.5-36.3); MEAN CORPUSCULAR VOLUME 86.8 fL (73.0-96.2); MONOCYTES # (AUTO) 0.9 K/uL (2.0-10.0); MONOCYTES % (AUTO) 11.5 % (0.0-11.0); NEUTROPHILS # (AUTO) 4.9 K/uL (1.8-8.9); NEUTROPHILS % (AUTO) 62.9 % (38.5-71.5); PLATELET COUNT (AUTO) 179 K/uL (152-348); RED BLOOD CELL COUNT(AUTO) 4.87 MIL/uL (4.06-5.63); WHITE BLOOD COUNT (AUTO) 7.7 K/uL (3.6-10.2)
[2017-09-07 22:56] LABS: CREATININE 1.2 mg/dL (0.6-1.3); POTASSIUM 4.1 mmol/L (3.5-5.1)
[2017-09-07 23:02] LABS: BILIRUBIN,DIRECT 0.1 mg/dL (0.0-0.2); BILIRUBIN,TOTAL 0.5 mg/dL (0.2-1.0); TOTAL PROTEIN, SERUM 7.5 g/dL (6.4-8.2)
[2017-09-07] MEDS ORDERED: NITROGLYCERIN 0.4 MG/TAB BOTTLE SL ONE ×2 (23:15→23:46)
[2017-09-07 23:30] VITALS: BP 136/78
--- NOTE | 2017-09-08 00:07 | NUR ---
Patient discharged to home in stable conditon. Written and verbal after care instructions given. Patient verbalizes understanding of instructions.
== END 2017-09-08 00:08 | disposition home or self-care (01) ==
LOC: ER 22:03
DX: G89.29 Other chronic pain (principal); R07.9 Chest pain, unspecified; E11.9 Type 2 diabetes mellitus without complications; E78.5 Hyperlipidemia, unspecified; I50.32 Chronic diastolic (congestive) heart failure
CPT/HCPCS: 36415; 70030-TC; 71010; 85025; 93005; A4663

== ENCOUNTER 2017-10-04 11:41 | Emergency (ER) | payer MEDICARE, MEDICAID ==
[~2017-10-04] VITALS: Ht 172.7 cm; Wt 76.7 kg
[2017-10-04] MEDS ORDERED: NITROGLYCERIN OINT 1 GM PACKET TP ONE ×2 (12:00→12:20)
[2017-10-04] MEDS ORDERED: ASPIRIN 81 MG TAB.CHEW PO ONE (12:00)
[2017-10-04 12:02] VITALS: BP 139/89
[2017-10-04] MEDS ORDERED: ASPIRIN 81 MG TAB.CHEW ONE (12:20)
[2017-10-04 12:52] LABS: BASOPHILS % (AUTO) 0.5 % (0.0-2.0); EOSINOPHILS # (AUTO) 0.2 K/uL (0.0-0.7); EOSINOPHILS % (AUTO) 2.1 % (0.0-7.0); HEMATOCRIT 43.4 % (36.7-47.1); HEMOGLOBIN 14.3 g/dL (12.5-16.3); LYMPHOCYTES # (AUTO) 1.6 K/uL (20.0-40.0); LYMPHOCYTES % (AUTO) 17.7 % (20.5-51.5); MEAN CORPUSCULAR HEMOGLOBIN 28.8 uug (23.8-33.4); MEAN CORPUSCULAR HGB CONC 33 g/dL (32.5-36.3); MEAN CORPUSCULAR VOLUME 87.7 fL (73.0-96.2); MONOCYTES # (AUTO) 0.6 K/uL (2.0-10.0); MONOCYTES % (AUTO) 7.4 % (0.0-11.0); NEUTROPHILS # (AUTO) 6.3 K/uL (1.8-8.9); NEUTROPHILS % (AUTO) 72.3 % (38.5-71.5); PLATELET COUNT (AUTO) 150 K/uL (152-348); RED BLOOD CELL COUNT(AUTO) 4.95 MIL/uL (4.06-5.63); WHITE BLOOD COUNT (AUTO) 8.8 K/uL (3.6-10.2)
[2017-10-04 12:59] LABS: CARBON DIOXIDE 22 mmol/L (21-32); CHLORIDE 103 mmol/L (98-107); CREATININE 1.2 mg/dL (0.6-1.3); GLUCOSE 85 mg/dL (74-106); POTASSIUM 4.6 mmol/L (3.5-5.1); UREA NITROGEN, BLOOD 16 mg/dL (7-18)
[2017-10-04 13:13] LABS: ALANINE AMINOTRANSFERASE 18 U/L (16-63); ALKALINE PHOSPHATASE 61 U/L (50-136); ASPARTATE AMINOTRANSFERASE 15 U/L (15-37); BILIRUBIN,DIRECT < 0.1 mg/dL (0.0-0.2); BILIRUBIN,TOTAL 0.5 mg/dL (0.2-1.0); TOTAL PROTEIN, SERUM 7.1 g/dL (6.4-8.2)
--- NOTE | 2017-10-04 13:24 | NUR ---
Patient is AOx4, refusing to go to CT scan at this time, until he talks to our MD again. Dr Khan notified.
--- NOTE | 2017-10-04 14:07 | NUR ---
marine technician came to take the patient for CT scan multiple times but patient refuses again and again until patient has talked to our MD again. Dr Khan is made aware re: delays for CT.
--- NOTE | 2017-10-04 14:58 | NUR ---
Patient is resting comfortably in bed with eyes closed, NAD, still for disposition, no acute change in condition seen
--- NOTE | 2017-10-04 15:14 | NUR ---
Patient ambulated to the bathroom with brisk steady gait, NAD. Patient is still refusing the CT scan.
--- NOTE | 2017-10-04 15:18 | NUR ---
Patient walked out of our ER as soon as the patient learned that he will be discharge by our ER doctor. Patient left ER with brisk steady gait before the discharge papers were printed.
== END 2017-10-04 15:32 | disposition left against medical advice (07) ==
LOC: ER 11:42
DX: R07.89 Other chest pain (principal); E11.9 Type 2 diabetes mellitus without complications; H40.9 Unspecified glaucoma; I50.9 Heart failure, unspecified; I25.2 Old myocardial infarction; E78.5 Hyperlipidemia, unspecified; Z79.01 Long term (current) use of anticoagulants; Z79.82 Long term (current) use of aspirin; Z88.5 Allergy status to narcotic agent; W01.0XXA Fall on same level from slipping, tripping and stumbling without subsequent striking against object, initial encounter; Y92.89 Other specified places as the place of occurrence of the external cause; Y93.89 Activity, other specified; Y99.8 Other external cause status
CPT/HCPCS: 36415; 71045; 80048; 80076; 83880; 84484; 85025; 93005 ×2; 99285; A4663; 70030-TC

== ENCOUNTER 2017-12-31 21:24 | Emergency (ER) | payer MEDICARE, MEDICAID ==
[~2017-12-31] VITALS: Ht 172.7 cm; Wt 86.2 kg
[~2017-12-31 21:24] MED LIST changes: -METF500T4 PO; +METF500T6 PO
--- NOTE | 2017-12-31 21:30 | NUR ---
Patient ambulated to ER with steady gait, c/o chestpain, reports feeling like elephant on chest, states pain also on the side of the neck. Denies dizziness, shortness of breath, nausea and vomiting.
--- NOTE | 2017-12-31 21:36 | NUR ---
Dr. Bhatti at bedside for MSE.
[2017-12-31] MEDS ORDERED: NITROGLYCERIN 0.4 MG/TAB BOTTLE SL ONE ×2 (21:45→21:52)
[2017-12-31] MEDS ORDERED: ASPIRIN 81 MG TAB.CHEW PO ONE (21:45)
[2017-12-31] MEDS ORDERED: ASPIRIN 81 MG TAB.CHEW ONE ×2 (21:51)
--- NOTE | 2017-12-31 21:53 | NUR ---
Patient given aspirin and nitroglycerin. Patient states pain about an 8, feels like an elephant on chest. To recheck chest pain after 5 min.
[2017-12-31 21:55] LABS: BASOPHILS % (AUTO) 0.4 % (0.0-2.0); EOSINOPHILS # (AUTO) 0.2 K/uL (0.0-0.7); EOSINOPHILS % (AUTO) 2.3 % (0.0-7.0); HEMOGLOBIN 13.2 g/dL (12.5-16.3); LYMPHOCYTES # (AUTO) 1.4 K/uL (20.0-40.0); LYMPHOCYTES % (AUTO) 18.3 % (20.5-51.5); MEAN CORPUSCULAR HEMOGLOBIN 28.8 uug (23.8-33.4); MEAN CORPUSCULAR HGB CONC 33 g/dL (32.5-36.3); MEAN CORPUSCULAR VOLUME 87.1 fL (73.0-96.2); MONOCYTES # (AUTO) 0.7 K/uL (2.0-10.0); MONOCYTES % (AUTO) 8.6 % (0.0-11.0); NEUTROPHILS # (AUTO) 5.5 K/uL (1.8-8.9); NEUTROPHILS % (AUTO) 70.4 % (38.5-71.5); PLATELET COUNT (AUTO) 170 K/uL (152-348); RED BLOOD CELL COUNT(AUTO) 4.59 MIL/uL (4.06-5.63); WHITE BLOOD COUNT (AUTO) 7.8 K/uL (3.6-10.2)
--- NOTE | 2017-12-31 21:57 | NUR ---
Xray at bedside.
--- NOTE | 2017-12-31 21:58 | NUR ---
Patient states chest pain still about the same. Administered 0.4mg nitroglycerin sublingual.
[2017-12-31 22:03] LABS: CREATININE 1.3 mg/dL (0.6-1.3); POTASSIUM 4.1 mmol/L (3.5-5.1)
--- NOTE | 2017-12-31 22:03 | NUR ---
Patient states still no relief of chest pain. Administered nitroglycerin 0.4 mg sublingual.
--- NOTE | 2017-12-31 22:08 | NUR ---
Patient states no relief on chest pain after 3 doses of nitroglycerin 0.4mg. MD notified.
[2017-12-31 22:18] LABS: BILIRUBIN,DIRECT 0.1 mg/dL (0.0-0.2); BILIRUBIN,TOTAL 0.2 mg/dL (0.2-1.0); TOTAL PROTEIN, SERUM 7.5 g/dL (6.4-8.2)
[2017-12-31] MEDS ORDERED: DIAZEPAM 5 MG TABLET ONE (22:45)
[2017-12-31] MEDS ORDERED: DIAZEPAM 2 MG TABLET PO ONE (22:45)
--- NOTE | 2017-12-31 23:11 | NUR ---
Patient reports pain about 7/10 on the neck and chest.
--- NOTE | 2018-01-01 01:00 | NUR ---
Repeat EKG performed. Patient states neck and chest still in pain 03/22. MD notified.
[2018-01-01 01:53] VITALS: BP 130/77
== END 2018-01-01 01:54 | disposition home or self-care (01) ==
LOC: ER 21:27
DX: R07.89 Other chest pain (principal); G89.29 Other chronic pain; E11.9 Type 2 diabetes mellitus without complications; E78.5 Hyperlipidemia, unspecified; Z88.5 Allergy status to narcotic agent; Z91.041 Radiographic dye allergy status; Z79.82 Long term (current) use of aspirin; Z79.899 Other long term (current) drug therapy; Z79.84 Long term (current) use of oral hypoglycemic drugs; Z79.01 Long term (current) use of anticoagulants
CPT/HCPCS: 36415; 70030-TC; 71045; 85025; 85730; 93005; A4663

== ENCOUNTER 2018-12-24 14:35 | Emergency (ER) | payer MEDICARE, MEDICAID ==
[~2018-12-24] VITALS: Ht 172.7 cm; Wt 88.9 kg
[~2018-12-24 14:35] MED LIST changes: +METF-440 PO; -METF500T6 PO
--- NOTE | 2018-12-24 15:24 | NUR ---
PT WAS EVALUATED BY DR DIEGO. PT WAS D/C'D TO HOME. D/C INSTRUCTIONS GIVEN TO THE PT BY DR DIEGO.
[2018-12-24 15:25] VITALS: BP 136/72
== END 2018-12-24 15:26 | disposition home or self-care (01) ==
LOC: ER 14:35
DX: G89.29 Other chronic pain (principal); R07.89 Other chest pain; Z76.5 Malingerer [conscious simulation]; E11.9 Type 2 diabetes mellitus without complications; E78.5 Hyperlipidemia, unspecified; Z88.5 Allergy status to narcotic agent; Z91.041 Radiographic dye allergy status; Z79.82 Long term (current) use of aspirin; Z79.899 Other long term (current) drug therapy; Z95.0 Presence of cardiac pacemaker
CPT/HCPCS: A4663

== ENCOUNTER 2019-07-30 12:27 | Emergency (ER) | payer OTHER, MEDICAID ==
[~2019-07-30] VITALS: Ht 172.7 cm; Wt 88.9 kg
--- NOTE | 2019-07-30 12:46 | NUR ---
PT IS IN ROOM #1B. DR MARTIN EVALUATED THE PT.
--- NOTE | 2019-07-30 13:26 | NUR ---
PT WAS D/C'd TO HOME. D/C INSTRUCTIONS GIVENM TO THE PT. PT DENIES PAIN . NO N/V. NO SOB. NO S/S OF ACUTE DISTRESS AT THE TIME OF DISCHARGE.
[2019-07-30 13:28] VITALS: BP 142/79
== END 2019-07-30 13:40 | disposition home or self-care (01) ==
LOC: ER 12:27
DX: G89.29 Other chronic pain (principal); R07.9 Chest pain, unspecified; E11.9 Type 2 diabetes mellitus without complications; E78.5 Hyperlipidemia, unspecified; Z88.5 Allergy status to narcotic agent; Z88.8 Allergy status to other drugs, medicaments and biological substances; Z91.018 Allergy to other foods; Z79.82 Long term (current) use of aspirin; Z79.899 Other long term (current) drug therapy
CPT/HCPCS: 36415; 70030-TC; A4663

== ENCOUNTER 2019-12-01 16:01 | Emergency (ER) | payer MEDICARE, OTHER ==
[~2019-12-01] VITALS: Ht 172.7 cm; Wt 88.9 kg
[2019-12-01] MEDS ORDERED: FINA5TAB11 PO (16:18)
[2019-12-01 16:26] LABS: BASOPHILS # (AUTO) 0.1 K/uL (0.0-8.0); BASOPHILS % (AUTO) 0.7 % (0.0-2.0); EOSINOPHILS # (AUTO) 0.2 K/uL (0.0-0.7); EOSINOPHILS % (AUTO) 1.8 % (0.0-7.0); HEMATOCRIT 38.9 % (36.7-47.1); HEMOGLOBIN 12.6 g/dL (12.5-16.3); LYMPHOCYTES # (AUTO) 1.5 K/uL (20.0-40.0); LYMPHOCYTES % (AUTO) 17.4 % (20.5-51.5); MEAN CORPUSCULAR HEMOGLOBIN 27.1 uug (23.8-33.4); MEAN CORPUSCULAR HGB CONC 33 g/dL (32.5-36.3); MEAN CORPUSCULAR VOLUME 83.4 fL (73.0-96.2); MONOCYTES # (AUTO) 0.6 K/uL (2.0-10.0); MONOCYTES % (AUTO) 6.7 % (0.0-11.0); NEUTROPHILS # (AUTO) 6.5 K/uL (1.8-8.9); NEUTROPHILS % (AUTO) 73.4 % (38.5-71.5); PLATELET COUNT (AUTO) 182 K/uL (152-348); RED BLOOD CELL COUNT(AUTO) 4.66 MIL/uL (4.06-5.63); WHITE BLOOD COUNT (AUTO) 8.8 K/uL (3.6-10.2)
[2019-12-01 16:34] LABS: CREATININE 1.2 mg/dL (0.6-1.3); POTASSIUM 4.5 mmol/L (3.5-5.1)
[2019-12-01 16:56] VITALS: BP 126/77
--- NOTE | 2019-12-01 16:56 | NUR ---
Patient discharged to home in stable conditon. Written and verbal after care instructions given. Patient verbalizes understanding of instructions. all belongings w/ pt. pt self-ambulated w/o difficulty.
== END 2019-12-01 16:57 | disposition home or self-care (01) ==
LOC: ER 16:03
DX: R07.89 Other chest pain (principal); E11.9 Type 2 diabetes mellitus without complications; Z88.5 Allergy status to narcotic agent; Z88.8 Allergy status to other drugs, medicaments and biological substances; Z79.82 Long term (current) use of aspirin; Z79.899 Other long term (current) drug therapy
CPT/HCPCS: 36415; 70030-TC; 71045; 85025; 93005; A4663

== ENCOUNTER 2020-06-02 02:38 | Emergency (ER) | payer MEDICARE, OTHER ==
[~2020-06-02] VITALS: Ht 172.7 cm; Wt 93.0 kg
[~2020-06-02 02:38] MED LIST changes: +FINA5TAB11 PO
--- NOTE | 2020-06-02 03:00 | NUR ---
at [facility] for assessment
[2020-06-02] MEDS ORDERED: NITROGLYCERIN 0.4 MG/TAB BOTTLE SL ONE ×2 (03:11→03:15)
[2020-06-02] MEDS ORDERED: ASPIRIN 81 MG TAB.CHEW ONE (03:11)
[2020-06-02] MEDS ORDERED: ASPIRIN 81 MG TAB.CHEW PO ONE (03:15)
[2020-06-02] MEDS: KETOROLAC TROMETHAMINE 15 MG INJ IVP ONE ×2 (03:27→04:07)
[2020-06-02] MEDS ORDERED: KETOROLAC TROMETHAMINE 15 MG INJ ONE (03:28)
[2020-06-02 03:35] LABS: CREATININE 1.1 mg/dL (0.6-1.3); POTASSIUM 4.3 mmol/L (3.5-5.1); WHITE BLOOD COUNT (AUTO) 6.7 K/uL (3.6-10.2)
[2020-06-02 03:36] LABS: BASOPHILS # (AUTO) 0.1 K/uL (0.0-8.0); EOSINOPHILS # (AUTO) 0.3 K/uL (0.0-0.7); HEMATOCRIT 33.6 % (36.7-47.1); HEMOGLOBIN 10.6 g/dL (12.5-16.3); LYMPHOCYTES # (AUTO) 1.4 K/uL (20.0-40.0); LYMPHOCYTES % (AUTO) 21.3 % (20.5-51.5); MEAN CORPUSCULAR HEMOGLOBIN 25.2 uug (23.8-33.4); MEAN CORPUSCULAR HGB CONC 32 g/dL (32.5-36.3); MEAN CORPUSCULAR VOLUME 79.5 fL (73.0-96.2); MONOCYTES # (AUTO) 0.8 K/uL (2.0-10.0); MONOCYTES % (AUTO) 12.4 % (0.0-11.0); NEUTROPHILS # (AUTO) 4.1 K/uL (1.8-8.9); NEUTROPHILS % (AUTO) 61.3 % (38.5-71.5); PLATELET COUNT (AUTO) 168 K/uL (152-348); RED BLOOD CELL COUNT(AUTO) 4.23 MIL/uL (4.06-5.63)
[2020-06-02 03:48] LABS: BILIRUBIN,DIRECT 0.1 mg/dL (0.0-0.2); BILIRUBIN,TOTAL 0.3 mg/dL (0.2-1.0); TOTAL PROTEIN, SERUM 7.1 g/dL (6.4-8.2)
--- NOTE | 2020-06-02 05:28 | NUR ---
Patient noted resting in bed, no complaints of chest pain at this time, no signs of distress, vitals stable
--- NOTE | 2020-06-02 06:24 | NUR ---
Patient noted resting in bed, no acute distress noted
--- NOTE | 2020-06-02 07:26 | NUR ---
IV removed. Catheter intact and site benign. Pressure and 4x4 gauze applied to site. No bleeding noted. Patient discharged to home in stable condition. Written and verbal after care instructions given. Patient verbalizes understanding of instructions. Stressed follow up or return to ER for worsening s/s. Patient ambulated with steady gait. NAD noted.
[2020-06-02 08:14] VITALS: BP 109/67
== END 2020-06-02 07:26 | disposition home or self-care (01) ==
LOC: ER 02:41
DX: R07.9 Chest pain, unspecified (principal); Z86.711 Personal history of pulmonary embolism; Z79.01 Long term (current) use of anticoagulants; I11.0 Hypertensive heart disease with heart failure; I50.32 Chronic diastolic (congestive) heart failure; Z82.49 Family history of ischemic heart disease and other diseases of the circulatory system; E11.9 Type 2 diabetes mellitus without complications; Z79.84 Long term (current) use of oral hypoglycemic drugs; Z88.6 Allergy status to analgesic agent; Z91.041 Radiographic dye allergy status; E78.5 Hyperlipidemia, unspecified; H40.9 Unspecified glaucoma; Z86.718 Personal history of other venous thrombosis and embolism; Z79.899 Other long term (current) drug therapy
CPT/HCPCS: 36415; 71046; 80048; 80076; 83036; 83880; 84484; 85025; 85379; 85730; 93005; 96374; 99285; J1885; 70030-TC; A4663

== ENCOUNTER 2020-10-29 23:28 | Emergency (ER) | payer MEDICARE, OTHER ==
[~2020-10-29] VITALS: Ht 172.7 cm; Wt 88.9 kg
[~2020-10-29 23:28] MED LIST changes: -ASPI81TA31 GT; -FINA5TAB11 PO; -TAMS-3 PO
[2020-10-30 00:07] LABS: BASOPHILS % (AUTO) 0.6 % (0.0-2.0); EOSINOPHILS # (AUTO) 0.2 K/uL (0.0-0.7); EOSINOPHILS % (AUTO) 3.4 % (0.0-7.0); HEMATOCRIT 34.4 % (36.7-47.1); HEMOGLOBIN 10.7 g/dL (12.5-16.3); LYMPHOCYTES # (AUTO) 1.4 K/uL (20.0-40.0); LYMPHOCYTES % (AUTO) 20.6 % (20.5-51.5); MEAN CORPUSCULAR HEMOGLOBIN 24.3 uug (23.8-33.4); MEAN CORPUSCULAR HGB CONC 31 g/dL (32.5-36.3); MEAN CORPUSCULAR VOLUME 78.4 fL (73.0-96.2); MONOCYTES # (AUTO) 0.7 K/uL (2.0-10.0); MONOCYTES % (AUTO) 10.2 % (0.0-11.0); NEUTROPHILS # (AUTO) 4.3 K/uL (1.8-8.9); NEUTROPHILS % (AUTO) 65.2 % (38.5-71.5); PLATELET COUNT (AUTO) 209 K/uL (152-348); RED BLOOD CELL COUNT(AUTO) 4.38 MIL/uL (4.06-5.63); WHITE BLOOD COUNT (AUTO) 6.6 K/uL (3.6-10.2)
[2020-10-30 00:12] LABS: CREATININE 1.2 mg/dL (0.6-1.3); POTASSIUM 3.6 mmol/L (3.5-5.1)
[2020-10-30 00:28] LABS: BILIRUBIN,DIRECT 0.1 mg/dL (0.0-0.2); BILIRUBIN,TOTAL 0.3 mg/dL (0.2-1.0); TOTAL PROTEIN, SERUM 7.1 g/dL (6.4-8.2)
[2020-10-30] MEDS ORDERED: NITROGLYCERIN 0.4 MG/TAB BOTTLE SL ONE ×2 (00:45→00:46)
[2020-10-30] MEDS ORDERED: MAG HYDROX/AL HYDROX/SIMETH 30 ML LIQUID UDC PO ONE (01:00)
[2020-10-30] MEDS ORDERED: DICYCLOMINE HCL LIQ 10 MG/5 ML UDC PO ONE (01:00)
[2020-10-30] MEDS ORDERED: MAG HYDROX/AL HYDROX/SIMETH 30 ML LIQUID UDC ONE (01:07)
[2020-10-30] MEDS ORDERED: DICYCLOMINE HCL LIQ 10 MG/5 ML UDC ONE (01:07)
[2020-10-30] MEDS ORDERED: MORPHINE SULFATE 4 MG/1 ML DISP.SYRIN IV ONE (01:15)
[2020-10-30] MEDS ORDERED: MORPHINE SULFATE 4 MG/1 ML DISP.SYRIN ONE (01:21)
[2020-10-30 01:50] VITALS: BP 124/74
== END 2020-10-30 01:50 | disposition home or self-care (01) ==
LOC: ER 23:34
DX: R07.9 Chest pain, unspecified (principal); Z20.822 Contact with and (suspected) exposure to COVID-19; Z88.5 Allergy status to narcotic agent; Z91.041 Radiographic dye allergy status; E78.5 Hyperlipidemia, unspecified; I50.32 Chronic diastolic (congestive) heart failure; E11.65 Type 2 diabetes mellitus with hyperglycemia; Z95.0 Presence of cardiac pacemaker; Z86.718 Personal history of other venous thrombosis and embolism; Z86.711 Personal history of pulmonary embolism; Z79.01 Long term (current) use of anticoagulants; Z79.84 Long term (current) use of oral hypoglycemic drugs
CPT/HCPCS: 36415; 71045; 80048; 80076; 83880; 84484; 85025; 85730; 87426; 93005; 96374; 99285; J2270; 70030-TC

== ENCOUNTER 2021-08-24 15:00 | Inpatient (IN) | payer MEDICARE, OTHER ==
[~2021-08-24] VITALS: Ht 172.7 cm; Wt 90.3 kg
[2021-08-24] MEDS ORDERED: ASPIRIN 325 MG TABLET PO ONE (15:15)
[2021-08-24] MEDS ORDERED: NITROGLYCERIN 0.4 MG/TAB BOTTLE SL ONE ×2 (15:30→15:48)
--- NOTE | 2021-08-24 15:32 | NUR ---
PT IS IN ROOM #1B. DR GEE EVALUATED THE PT.
[2021-08-24 15:46] LABS: HEMATOCRIT 39.5 % (36.7-47.1); MEAN CORPUSCULAR HEMOGLOBIN 30.1 uug (23.8-33.4); MEAN CORPUSCULAR VOLUME 90.7 fL (73.0-96.2); PLATELET COUNT (AUTO) 166 K/uL (152-348)
[2021-08-24] MEDS ORDERED: ASPIRIN 325 MG TABLET ONE (15:48)
[2021-08-24 15:54] LABS: CREATININE 1.1 mg/dL (0.6-1.3); POTASSIUM 3.9 mmol/L (3.5-5.1)
[2021-08-24 16:00] LABS: BILIRUBIN,TOTAL 0.3 mg/dL (0.2-1.0); TOTAL PROTEIN, SERUM 7.1 g/dL (6.4-8.2)
[2021-08-24] MEDS ORDERED: MORPHINE SULFATE 4 MG/1 ML DISP.SYRIN IV ONE (16:30)
[2021-08-24] MEDS ORDERED: MORPHINE SULFATE 4 MG/1 ML DISP.SYRIN ONE (16:38)
[2021-08-24] MEDS ORDERED: Z GUARD REMEDY PASTE 57 GM TUBE TOP PRN (17:00)
[2021-08-24] MEDS ORDERED: ONDANSETRON 4 MG/2 ML VIAL IV PRN (17:00)
[2021-08-24] MEDS ORDERED: ENOXAPARIN SODIUM 40 MG/0.4 ML DISP.SYRIN SQ SCH (17:00)
[2021-08-24] MEDS ORDERED: DEXTROSE 50% 50 ML DISP.SYRIN IV PRN (17:00)
[2021-08-24] MEDS ORDERED: MAGNESIUM HYDROXIDE 30 ML LIQUID UDC PO PRN (17:00)
[2021-08-24] MEDS ORDERED: BRIMONIDINE-P 0.1% OPHTH DROP 5 ML DROPS EACHEYE SCH (17:00)
[2021-08-24] MEDS ORDERED: ENOXAPARIN SODIUM 40 MG/0.4 ML DISP.SYRIN SQ ONE (17:35)
[2021-08-24] MEDS: DORZOLAMIDE/TIMOLOL OPHT DROP 10 ML BOTTLE EACHEYE SCH (17:42)
[2021-08-24] MEDS ORDERED: LISINOPRIL 10 MG TABLET PO ONE (18:00)
--- NOTE | 2021-08-24 20:22 | NUR ---
Report given to ISACC Gonzalez. Admitted by Babak Thompson NP on medical surgical floor.
[2021-08-24] MEDS: METOPROLOL TARTRATE 25 MG TABLET PO SCH (21:00)
--- NOTE | 2021-08-24 21:00 | NUR ---
Received patient via gurney, admitted to telemetry with diagnosis of chest pain r/o ACS. Patient is ambulatory. AAOX4, with no acute distress noted. Established initial nurse-patient rapport. Oriented patient to room, bed and call light button. On room air, saturating at 98%. IV access on CARLI intact and patent. Attached to tele monitor, showing sinus rhythm with HR of 64bpm. No skin issues. Safety precautions and comfort measures initiated. Will continue to monitor.
[2021-08-24 21:20] VITALS: BP 116/75
[2021-08-24] MEDS: BLOOD SUGAR DIAGNOSTIC 1 EACH STRIP VI SCH (22:05)
--- NOTE | 2021-08-24 22:30 | NUR ---
Patient reported of having chest pain radiating to the neck, with a pain rate of 7/10. V/S were taken and were within normal limits. Tele monitor showed sinus rhythm with HR of 64bpm. Advised patient to divert pain using non-pharmacological interventions such as deep breathing and repositioning. However, patient reported that the pain was persistent and lasting. Notified LEGAL RECEPTIONIST alteration manager, Babak Thompson. LEGAL RECEPTIONIST ordered Nitroglycerin 0.4mg 1 tablet SL [id number] and Morphine 2mg IV [id number].
[2021-08-24] MEDS ORDERED: NITROGLYCERIN 0.4 MG/TAB BOTTLE SL PRN (23:00)
[2021-08-24] MEDS ORDERED: MORPHINE SULFATE 2 MG/1 ML DISP.SYRIN IV PRN (23:30)
--- NOTE | 2021-08-24 23:50 | NUR ---
Patient was offered nitroglycerin 0.4mg 1 tablet [id number] for chest pain, however, patient refused to take the medication due to the medications side effects. Will continue to monitor.
[2021-08-25] VITALS: BP 143/74
[2021-08-25] MEDS ORDERED: HALOPERIDOL LACTATE 5 MG/1 ML VIAL IM STA (01:57)
[2021-08-25 04:00] VITALS: BP 140/80
[2021-08-25] MEDS: ACETAMINOPHEN 325 MG TABLET PO PRN ×2 (04:49→20:09)
[2021-08-25] MEDS: PANTOPRAZOLE SODIUM 40 MG TABLET.DR PO SCH (06:30)
[2021-08-25 06:41] LABS: HEMATOCRIT 37.4 % (36.7-47.1); MEAN CORPUSCULAR HEMOGLOBIN 29.8 uug (23.8-33.4); MEAN CORPUSCULAR VOLUME 89.8 fL (73.0-96.2); PLATELET COUNT (AUTO) 151 K/uL (152-348)
[2021-08-25] MEDS: BLOOD SUGAR DIAGNOSTIC 1 EACH STRIP VI SCH ×4 (06:53→20:07)
--- NOTE | 2021-08-25 06:55 | NUR ---
Patient slept through the night, no acute distress noted at this time. All due medications were given as ordered. On tele monitor, showing sinus rhythm with a couple episodes of accelerated idioventricular rhythm. HR of 65bpm. IV access still patent and intact. AC accuchek done, 112. All needs were attended to and met. Safety precautions and comfort measures were maintained. Call light button and frequently used items within reach. Will endorse to day shift nurse.
[2021-08-25 07:02] LABS: BILIRUBIN,TOTAL 0.3 mg/dL (0.2-1.0); CREATININE 0.9 mg/dL (0.6-1.3); PHOSPHOROUS 4.1 mg/dL (2.5-4.9); POTASSIUM 3.6 mmol/L (3.5-5.1); TOTAL PROTEIN, SERUM 6.4 g/dL (6.4-8.2)
--- NOTE | 2021-08-25 08:30 | NUR ---
PATIENT SEEN BY DR LORD WITH NO NEW ORDERS AND PER HIS NOTES PATIENT CAN BE DISCHARGED FROM [facility]ARDIAC [facility].
--- NOTE | 2021-08-25 09:00 | NUR ---
RESTING IN ROOM AWAKE ALERT AND ORIENTED DENIES PAIN OR DISCOMFORTS ON ROOM AIR WITH NO SHORTNESS OF BREATH TELE SR AND PACING NO S/S OF HYPO/HYPERGLYCEMIC REACTIONS CALL LIGHTS AND PERSONAL BELONGINGS ARE WITHIN EASY REACH MADE COMFORTABLE WILL CONTINUE TO OBSERVE.
[2021-08-25] MEDS: ASPIRIN EC 81 MG TABLET.DR PO SCH (09:06)
[2021-08-25] MEDS: ATORVASTATIN 10 MG TABLET PO SCH (09:06)
[2021-08-25] MEDS: METOPROLOL TARTRATE 25 MG TABLET PO SCH ×2 (09:07→21:00)
[2021-08-25] MEDS: DORZOLAMIDE/TIMOLOL OPHT DROP 10 ML BOTTLE EACHEYE SCH ×2 (09:08→16:36)
[2021-08-25] MEDS: BRIMONIDINE 0.2% OPHT DROP 10 ML BOTTLE EACHEYE SCH ×2 (09:08→16:38)
[2021-08-25] MEDS: ENOXAPARIN SODIUM 40 MG/0.4 ML DISP.SYRIN SQ SCH (09:09)
[2021-08-25 11:13] VITALS: BP 104/65
--- NOTE | 2021-08-25 11:25 | NUR ---
NOTED DISCHARGE ORDER SPOKE WITH EDIE RE HE IS DISCHARGED AND ASKED HIM WHO WILL PICK HIM UP AND HE STATED WILL CALL AND WILL LET ME KNOW
[2021-08-25] MEDS ORDERED: IBUPROFEN 400 MG TABLET PO ONE (12:00)
--- NOTE | 2021-08-25 12:00 | NUR ---
DR MARY MENDOZA HERE AND SEEN PATIENT AND PATIENT AWARE THAT HE WILL BE DISCHARGED HOME TODAY HE IS IN STABLE CONDITION WITH NO C/O PAIN AT ALL AT THIS TIME.
[2021-08-25] MEDS: INSULIN REGULAR, HUMAN 300 UNIT/3 ML VIAL SQ PRN ×2 (12:16→20:10)
--- NOTE | 2021-08-25 12:30 | NUR ---
ASKED PATIENT AGAIN WHO WILL PICH HIM UP SO THAT I CAN FINISH THE DISCHARGE BEFORE HIS RIDE GETS HERE AND HE STATED THAT HE IS NOT LEAVING TODAY STATED THAT HE FILED WITH THE INSURANCE COMPANY FOR [employer] DISCHARGE STATED THAT THE INSURANCE COMPANY IS CALLING [facility] WE SPEAK CALLED AND NOTIFIED MARY MENDOZA
[2021-08-25 15:36] VITALS: BP 118/56
--- NOTE | 2021-08-25 18:00 | NUR ---
PATIENT IS RESTING IN BED BLOOD SUGAR IS 111 NO S/S OF HYPO/HYPERGLYCEMIC REACTIONS AT THIS TIME DENIES PAIN OR DISCOMFORTS NO DISTRESS NOTED WILL CONTINUE TO OBSERVE.
--- NOTE | 2021-08-25 19:20 | NUR ---
Received pt resting in bed. AO x 4. Able to state all needs. On room air saturating at 99%. IV intact and saline locked. No signs of acute distress. Call lights within reach, safety measures initiated. Will continue to monitor.
[2021-08-25 20:00] VITALS: BP 118/62
[2021-08-25] MEDS: MORPHINE SULFATE 2 MG/1 ML DISP.SYRIN IV PRN (21:17)
--- NOTE | 2021-08-25 21:20 | NUR ---
BP: 134/68 HR 60, pt refused Metoprolol. No signs of acute distress.
[2021-08-26] MEDS: MORPHINE SULFATE 2 MG/1 ML DISP.SYRIN IV PRN ×2 (03:15→07:25)
[2021-08-26 04:00] VITALS: BP 108/49
[2021-08-26] MEDS: PANTOPRAZOLE SODIUM 40 MG TABLET.DR PO SCH (06:07)
[2021-08-26] MEDS: BLOOD SUGAR DIAGNOSTIC 1 EACH STRIP VI SCH ×4 (06:33→20:50)
--- NOTE | 2021-08-26 06:45 | NUR ---
AO x 4. On room air saturating at 99%. IV intact and patent. Morphine 2mg IV given for pain, effective. BP 138/66 HR 60. No signs of acute distress. BSG 116. Call lights within reach, urinal and belongings placed by bedside, safety measures maintained. Will endorse to am shift.
[2021-08-26] MEDS: METOPROLOL TARTRATE 25 MG TABLET PO SCH ×2 (09:00→20:40)
[2021-08-26] MEDS: ASPIRIN EC 81 MG TABLET.DR PO SCH (09:00)
[2021-08-26] MEDS: ATORVASTATIN 10 MG TABLET PO SCH (09:00)
[2021-08-26] MEDS: DORZOLAMIDE/TIMOLOL OPHT DROP 10 ML BOTTLE EACHEYE SCH ×2 (09:29→16:31)
[2021-08-26] MEDS: BRIMONIDINE 0.2% OPHT DROP 10 ML BOTTLE EACHEYE SCH ×2 (09:29→16:30)
[2021-08-26] MEDS: ENOXAPARIN SODIUM 40 MG/0.4 ML DISP.SYRIN SQ SCH (09:30)
--- NOTE | 2021-08-26 09:36 | NUR ---
PATIENT SEEN AND EXAMINED BY JOVANNI RODRIGUEZ PROVIDER HE IS AWARE THAT PATIENT WAS DISCHARGED YESTERDAY BUT HE IS APPELLING WITH MEDICARE.WITH NO NEW ORDERS AT THIS TIME
[2021-08-26] MEDS ORDERED: TRAMADOL HCL 50 MG TABLET PO PRN (10:00)
[2021-08-26 12:00] VITALS: BP 112/63
[2021-08-26] MEDS: INSULIN REGULAR, HUMAN 300 UNIT/3 ML VIAL SQ PRN ×3 (12:36→21:14)
--- NOTE | 2021-08-26 14:00 | NUR ---
IN BED SLEPT AT LONG INTERVALS DENIES PAIN OR DISCOMFORTS AT THIS TIME AWARE THAT HIS EPIC PROVIDER JOVANNI MONTAÑO HAS PRESCRIBED TRAMADOL FOR HIS PAIN NEEDED AND HE STATED THAT JOVANNI HAD MADE HIM AWARE OF THE CHANGES IN HIS PAIN MEDICATIONS INSTRUCTED HIM TO LET ME KNOW WHEN HE NEEDS ONE AND HE EXPRESSED UNDERSTANDING.
[2021-08-26 16:00] VITALS: BP 135/64
--- NOTE | 2021-08-26 16:53 | NUR ---
CONTINUES TO REST HE IS COMFORTABLE MOSTLY ON HIS CELL PHONE NO DISTRESS NOTED WILL CONTINUE TO OBSERVE.
--- NOTE | 2021-08-26 18:31 | NUR ---
CONTINUES TO DENY PAIN OR DISCOMFORTS STATED WILL LET ME KNOW WHEN HE NEEDS SOMETHING FOR PAIN.
[2021-08-26 20:21] VITALS: BP 110/76
--- NOTE | 2021-08-26 21:00 | NUR ---
PATIENT IS ALERT ORIENTED X4 CONTINUES TO DENY PAIN OR DISCOMFORTS WHEN ASKED AWARE THAT HE HAS AVAILABLE PRN PAIN MEDICATIONS WHENEVER HE WANTS IT BUT STATED HE IS OKAY NOW WILL LET ME KNOW WHEN HE IS READY TO TAKE THE PAIN MEDS.
--- NOTE | 2021-08-26 21:44 | NUR ---
CALLED ME INTO HIS ROOM AND STATED THAT HIS IV HEPLOCK CAME OUT WHILE HE WAS WASHING HIS HANDS PRESSURE APPLIED AND GAUZE DRESSING PLACED NO BLEEDING AT THIS TIME ATTEMPTED TO REINSERT PATIENT HAS POOR VEINOUS ACCESS ATTEMPTED X1 WILL SEE IF ANOTHER RN IS ABLE TO INSERT OTHERWISE WILL CALL AND NOTIFY THE DOCTOR PATIENT AWARE AND EXPRESSED UNDERSTANDING.
--- NOTE | 2021-08-27 00:30 | NUR ---
IV REINSERTED BACK TO HIS RIGHT UPPER ARM BY AN ED RN FLUSHED AND PATENT TOLERATED WELL.
--- NOTE | 2021-08-27 01:00 | NUR ---
PATIENT STATED THAT HE WANTS HIS MORPHINE BACK BECAUSE THE ULTRAM DID NOT HELP HIM ENOUGH CALLED ROCK SAUL NP AND LEFT HER A MESSAGE PATIENT AWARE AWAITING FOR RETURN CALL.
--- NOTE | 2021-08-27 01:07 | NUR ---
ROCK SAUL RETURNED CALL WITH NEW ORDERS AND NOTED AWAITING FOR VERIFICATION OF NEW ORDER.
[2021-08-27] MEDS: MORPHINE SULFATE 2 MG/1 ML DISP.SYRIN IV PRN ×5 (01:25→20:25)
--- NOTE | 2021-08-27 01:25 | NUR ---
MEDICATED WITH MORPHINE ORDERED AT THIS TIME.PATIENT IS AWAKE ALERT AND ORIENTED WILL CONTINUE TO OBSERVE.
[2021-08-27 04:37] VITALS: BP 128/60
--- NOTE | 2021-08-27 05:32 | NUR ---
PATIENT STATED PAIN IS BACK MEDICATED WITH MORPHINE ORDERED MADE COMFORTABLE WILL OBSERVE
[2021-08-27] MEDS: PANTOPRAZOLE SODIUM 40 MG TABLET.DR PO SCH (06:33)
[2021-08-27] MEDS: BLOOD SUGAR DIAGNOSTIC 1 EACH STRIP VI SCH ×4 (06:34→20:25)
[2021-08-27 07:50] LABS: HEMATOCRIT 39.3 % (36.7-47.1); MEAN CORPUSCULAR HEMOGLOBIN 29.7 uug (23.8-33.4); MEAN CORPUSCULAR VOLUME 89.7 fL (73.0-96.2); PLATELET COUNT (AUTO) 160 K/uL (152-348)
[2021-08-27 08:09] LABS: CREATININE 1.1 mg/dL (0.6-1.3)
--- NOTE | 2021-08-27 09:00 | NUR ---
Pt received awake, calm, on room air, breathing is non-labored. Pt c/o pain in left part of the chest, requests Morphine for pain, which was given as ordered.
[2021-08-27] MEDS: BRIMONIDINE 0.2% OPHT DROP 10 ML BOTTLE EACHEYE SCH ×2 (10:00→17:17)
[2021-08-27] MEDS: DORZOLAMIDE/TIMOLOL OPHT DROP 10 ML BOTTLE EACHEYE SCH ×2 (10:00→17:17)
[2021-08-27] MEDS: ASPIRIN EC 81 MG TABLET.DR PO SCH (10:01)
[2021-08-27] MEDS: ATORVASTATIN 10 MG TABLET PO SCH (10:01)
[2021-08-27] MEDS: METOPROLOL TARTRATE 25 MG TABLET PO SCH ×2 (10:01→21:00)
[2021-08-27] MEDS: ENOXAPARIN SODIUM 40 MG/0.4 ML DISP.SYRIN SQ SCH (10:06)
[2021-08-27 11:44] VITALS: BP_SYST 115; BP_SYST 120; BP_DIAS 40; BP_DIAS 58
[2021-08-27] MEDS: INSULIN REGULAR, HUMAN 300 UNIT/3 ML VIAL SQ PRN ×2 (12:23→20:24)
[2021-08-27 16:00] VITALS: BP 111/61
--- NOTE | 2021-08-27 19:30 | NUR ---
RECEIVED PT AWAKE, ALERT AND ORIENTEDX4. PT IN NO ACUTE DISTRESS. IV INTACT. SFAETY AND COMFORT PROVIDED. WILL CONTINUE TO MONITOR.
[2021-08-27 20:00] VITALS: BP 98/62
--- NOTE | 2021-08-27 21:30 | NUR ---
PT GIVEN MORPHINE SULFATE 2MG AT FOR CHEST PAIN. PT TOLERATED IT WELL. PT AFTER AN HOUR STATED HE FELT BETTER. LOPRESSOR NON-ADMINISTERED BECAUSE PT BP WAS 98/62. WILL CONTINUE TO MONITOR.
[2021-08-28] MEDS: MORPHINE SULFATE 2 MG/1 ML DISP.SYRIN IV PRN ×2 (02:30→08:32)
[2021-08-28 04:00] VITALS: BP 119/63
--- NOTE | 2021-08-28 04:06 | NUR ---
at 0230H morphine 2mg prn given for chest pain. Pt tolerated it well. Will continue to monitor.
[2021-08-28] MEDS: ACETAMINOPHEN 325 MG TABLET PO PRN (04:59)
[2021-08-28] MEDS: PANTOPRAZOLE SODIUM 40 MG TABLET.DR PO SCH (06:11)
--- NOTE | 2021-08-28 06:18 | NUR ---
Pt in no acute distress. Iv intact. Prescribed medication given and pt tolerated it well. Pt stable. Morphine prn given.Pt tolerated it well. Safety and comfort provided. All needs are met. Will endorse to incoming nurse for continuity of care.
[2021-08-28] MEDS: BLOOD SUGAR DIAGNOSTIC 1 EACH STRIP VI SCH (06:36)
[2021-08-28] MEDS: INSULIN REGULAR, HUMAN 300 UNIT/3 ML VIAL SQ PRN (07:43)
[2021-08-28 08:12] VITALS: BP 119/63
[2021-08-28] MEDS: ASPIRIN EC 81 MG TABLET.DR PO SCH (08:12)
[2021-08-28] MEDS: METOPROLOL TARTRATE 25 MG TABLET PO SCH (08:12)
[2021-08-28] MEDS: ATORVASTATIN 10 MG TABLET PO SCH (08:12)
[2021-08-28] MEDS: ENOXAPARIN SODIUM 40 MG/0.4 ML DISP.SYRIN SQ SCH (08:13)
[2021-08-28] MEDS: BRIMONIDINE 0.2% OPHT DROP 10 ML BOTTLE EACHEYE SCH (08:17)
[2021-08-28] MEDS: DORZOLAMIDE/TIMOLOL OPHT DROP 10 ML BOTTLE EACHEYE SCH (08:17)
--- NOTE | 2021-08-28 09:26 | NUR ---
dc orders received noted and carried out,dc heplock per md orders, dc instruction and education given to the pt pt said he will follow up with his pcp in one week .pt left the facility via walking from the hospital in stable condition
== END 2021-08-28 09:20 | disposition home or self-care (01) | DRG 951 ==
LOC: ER 15:13 → TRANSITION 17:38 → TELE3 20:39 → MEDSURG3 08-25 10:46
PROVIDERS: ADMIT Hospitalist; ATTEND Nurse Practitioner Family
DX: Z76.5 Malingerer [conscious simulation] (principal); I50.32 Chronic diastolic (congestive) heart failure; I11.0 Hypertensive heart disease with heart failure; Z86.711 Personal history of pulmonary embolism; E11.9 Type 2 diabetes mellitus without complications; E78.5 Hyperlipidemia, unspecified; H40.9 Unspecified glaucoma; R07.9 Chest pain, unspecified; Z79.01 Long term (current) use of anticoagulants; Z79.84 Long term (current) use of oral hypoglycemic drugs; Z86.718 Personal history of other venous thrombosis and embolism; Z95.0 Presence of cardiac pacemaker; Z20.822 Contact with and (suspected) exposure to COVID-19; Z98.890 Other specified postprocedural states; Z83.3 Family history of diabetes mellitus; Z82.49 Family history of ischemic heart disease and other diseases of the circulatory system
CPT/HCPCS: 36415; 70030-TC; 71045; 84100; 85025; 93005; 93307; A4663; C1758; G0378; J1650; J2270; J7030; U0003

== ENCOUNTER 2021-09-20 14:48 | Emergency (ER) | payer MEDICARE, OTHER ==
[~2021-09-20] VITALS: Ht 172.7 cm; Wt 88.9 kg
== END 2021-09-20 18:38 | disposition left against medical advice (07) ==
LOC: ER 14:51
DX: Z53.21 Procedure and treatment not carried out due to patient leaving prior to being seen by health care provider (principal)

== ENCOUNTER 2021-10-05 11:47 | Emergency (ER) | payer MEDICARE, OTHER ==
[~2021-10-05] VITALS: Ht 172.7 cm; Wt 89.8 kg
[2021-10-05 12:48] VITALS: BP 104/71
== END 2021-10-05 12:37 | disposition home or self-care (01) ==
LOC: ER 11:51
DX: R07.89 Other chest pain (principal); Z91.81 History of falling; Z88.6 Allergy status to analgesic agent; Z91.041 Radiographic dye allergy status; Z91.018 Allergy to other foods; Z86.711 Personal history of pulmonary embolism; Z86.718 Personal history of other venous thrombosis and embolism; Z79.01 Long term (current) use of anticoagulants; Z79.899 Other long term (current) drug therapy; E11.9 Type 2 diabetes mellitus without complications; Z79.84 Long term (current) use of oral hypoglycemic drugs; Z95.0 Presence of cardiac pacemaker
CPT/HCPCS: 93005; A4663

== ENCOUNTER 2021-11-28 21:03 | Emergency (ER) | payer MEDICARE, OTHER ==
[~2021-11-28] VITALS: Ht 172.7 cm; Wt 88.9 kg
[2021-11-28] MEDS ORDERED: TAMS-3 PO (21:56)
[2021-11-28] MEDS ORDERED: FINA5TAB11 PO (21:56)
--- NOTE | 2021-11-28 23:14 | NUR ---
Patient does not wish to proceed with medical care recommended by Dr. Monzon. Patient given information related to possible complications, up to and including , which could occur as a result of leaving the hospital at this time. Patient verbalizes understanding of risks involved due to leaving against medical advice. Pt refused to sign AMA form.
[2021-11-28 23:15] VITALS: BP 115/73
== END 2021-11-28 23:15 | disposition left against medical advice (07) ==
LOC: ER 21:06
DX: R07.2 Precordial pain (principal); R06.02 Shortness of breath; R73.03 Prediabetes; E78.00 Pure hypercholesterolemia, unspecified; H40.9 Unspecified glaucoma; Z86.711 Personal history of pulmonary embolism; Z79.01 Long term (current) use of anticoagulants; Z79.899 Other long term (current) drug therapy; Z79.84 Long term (current) use of oral hypoglycemic drugs
CPT/HCPCS: 71045; 93005; A4663

== ENCOUNTER 2022-10-02 17:49 | Inpatient (IN) | payer MEDICARE, OTHER ==
[~2022-10-02] VITALS: Ht 172.7 cm; Wt 87.1 kg
[~2022-10-02 17:49] MED LIST changes: +FINA5TAB11 PO; +TAMS-3 PO
--- NOTE | 2022-10-02 18:38 | NUR ---
Pt is hardstick, tried placing iv line x3 by 2 RNs. made aware.
[2022-10-02] MEDS ORDERED: ASPIRIN 81 MG TAB.CHEW ONE (18:56)
[2022-10-02] MEDS ORDERED: ASPIRIN 81 MG TAB.CHEW PO ONE (19:00)
[2022-10-02 19:06] LABS: HEMATOCRIT 46.4 % (36.7-47.1); MEAN CORPUSCULAR HEMOGLOBIN 29.3 uug (23.8-33.4); MEAN CORPUSCULAR VOLUME 90.7 fL (73.0-96.2); PLATELET COUNT (AUTO) 148 K/uL (152-348)
--- NOTE | 2022-10-02 19:08 | NUR ---
Covid-19 specimen x2 sent to lab.
--- NOTE | 2022-10-02 19:09 | NUR ---
Endorsed to Lanny DEXTER.
[2022-10-02 19:21] LABS: BILIRUBIN,DIRECT 0.2 mg/dL (0.0-0.2); BILIRUBIN,TOTAL 0.9 mg/dL (0.2-1.0); TOTAL PROTEIN, SERUM 8.4 g/dL (6.4-8.2)
[2022-10-02 19:28] LABS: CARBON DIOXIDE 28 mmol/L (21-32); CHLORIDE 106 mmol/L (98-107); CREATININE 1.3 mg/dL (0.6-1.3); GLUCOSE 97 mg/dL (74-106); POTASSIUM 4.1 mmol/L (3.5-5.1); UREA NITROGEN, BLOOD 17 mg/dL (7-18)
[2022-10-02] MEDS ORDERED: MORPHINE SULFATE 2 MG/1 ML DISP.SYRIN ONE ×2 (20:12→23:10)
[2022-10-02] MEDS ORDERED: MORPHINE SULFATE 4 MG/1 ML DISP.SYRIN IV ONE (20:15)
--- NOTE | 2022-10-02 20:25 | NUR ---
sent for lung perfusion procedure
--- NOTE | 2022-10-02 21:04 | NUR ---
Dr. Royal on panel call with Connor Miranda NP.
[2022-10-02] MEDS ORDERED: NITROGLYCERIN 0.4 MG/TAB BOTTLE SL ONE ×2 (21:45→23:11)
[2022-10-02] MEDS ORDERED: DEXTROSE 50% 50 ML DISP.SYRIN IV PRN (21:45)
[2022-10-02] MEDS ORDERED: MAGNESIUM HYDROXIDE 30 ML LIQUID UDC PO PRN (21:45)
[2022-10-02] MEDS ORDERED: ONDANSETRON 4 MG/2 ML VIAL IV PRN (21:45)
[2022-10-02] MEDS ORDERED: REMEDY ESSENTIAL ZINC PASTE 113 GM TP PRN (21:45)
--- NOTE | 2022-10-02 22:27 | NUR ---
called RN to endorse tele. will call back
[2022-10-02 23:00] VITALS: BP 108/71
[2022-10-02] MEDS ORDERED: MORPHINE SULFATE 10 MG/1 ML DISP.SYRIN IV PRN (23:00)
--- NOTE | 2022-10-03 00:01 | NUR ---
transferred to rm [id number]
--- NOTE | 2022-10-03 00:30 | NUR ---
Received pt via carmel assisted by RN. 67 yr old male diagnosed with chest pain under Dr. Miranda. complaints of chest pain of 7/10. Dull pain radiating to left shoulder and eft arm that causes numbness and also radiates to the back. AAOx4. Ambulatory. VSS. On room air. IV site on R FA 20 g intact and patent. Skin is intact. Routine admission done. Oriented pt to hospital room. Home medications documented and removed from bedside. Pt is aware that it will be given back to him when he gets discharged. All belongings documented. All needs attended. Call light within reach. Left bed in lowest position. Safety precautions maintained.
[2022-10-03] MEDS: ACETAMINOPHEN 325 MG TABLET PO PRN (01:58)
[2022-10-03 04:00] VITALS: BP 114/82
[2022-10-03 05:58] LABS: HEMATOCRIT 40.2 % (36.7-47.1); MEAN CORPUSCULAR HEMOGLOBIN 29.3 uug (23.8-33.4); MEAN CORPUSCULAR VOLUME 90.2 fL (73.0-96.2); PLATELET COUNT (AUTO) 143 K/uL (152-348)
[2022-10-03 06:10] LABS: CREATININE 1.1 mg/dL (0.6-1.3); PHOSPHOROUS 3.4 mg/dL (2.5-4.9)
[2022-10-03 06:17] LABS: THYROID STIMULATING HORMONE 0.13 mIU/mL (0.358-3.740)
[2022-10-03] MEDS: MORPHINE SULFATE 2 MG/1 ML DISP.SYRIN IVP PRN ×3 (06:38→22:16)
[2022-10-03] MEDS: BLOOD SUGAR DIAGNOSTIC 1 EACH STRIP VI SCH ×4 (06:38→21:48)
[2022-10-03 07:13] VITALS: BP 114/82
--- NOTE | 2022-10-03 07:30 | NUR ---
Sleeping, appears comfortable. Tele SR
[2022-10-03] MEDS ORDERED: TAMSULOSIN HCL 0.4 MG CAP.SR.24H PO SCH (09:00)
[2022-10-03] MEDS ORDERED: BRIMONIDINE-P 0.1% OPHTH DROP 5 ML DROPS EACHEYE SCH (09:00)
[2022-10-03] MEDS: PANTOPRAZOLE SODIUM 40 MG VIAL IV SCH (10:24)
[2022-10-03] MEDS: ASPIRIN 81 MG TAB.CHEW PO SCH (10:24)
[2022-10-03] MEDS: ATORVASTATIN 10 MG TABLET PO SCH (10:25)
[2022-10-03] MEDS: FINASTERIDE 5 MG TABLET PO SCH (10:27)
[2022-10-03] MEDS: DORZOLAMIDE/TIMOLOL OPHT DROP 10 ML BOTTLE EACHEYE SCH ×2 (10:46→21:48)
[2022-10-03] MEDS: BRIMONIDINE 0.2% OPHT DROP 10 ML BOTTLE EACHEYE SCH ×2 (10:46→21:47)
--- NOTE | 2022-10-03 11:12 | NUR ---
Reports of chest pain, relieved with Morphine.
[2022-10-03 11:20] VITALS: BP 111/74
[2022-10-03] MEDS: INSULIN REGULAR, HUMAN 300 UNIT/3 ML VIAL SQ PRN ×2 (12:47→21:49)
--- NOTE | 2022-10-03 14:00 | NUR ---
Resting between care
[2022-10-03 15:50] VITALS: BP 104/56
--- NOTE | 2022-10-03 17:20 | NUR ---
Not in distress. Tele SR
[2022-10-03 20:10] VITALS: BP 119/67
--- NOTE | 2022-10-03 21:55 | NUR ---
Pt complained of chest pain with pain score of 8/10 while I was giving his eye drops medications. Pt wanted to wait a few minutes between 2 eye drops medications, I told pt that I will leave first to get his pain medication. While I was preparing the pain medication, pt already called the supervisor adult education that he wants to change his nurse because I left in the middle of administering his eye drops.
--- NOTE | 2022-10-03 22:25 | NUR ---
Administered Morphine as ordered. All needs attended. Safety precautions maintained.
--- NOTE | 2022-10-03 23:00 | NUR ---
Patient care assumed. Patient sleeping. No acute distress noted. Telemetry sinus rhythm . Will continue to monitor.
[2022-10-04] VITALS (7 sets, daily range): BP systolic 96–112; BP diastolic 42–60
--- NOTE | 2022-10-04 01:59 | NUR ---
Patient Awake ,alert,and oriented x3. No acute distress noted. Patients b/p 96/53, Telemetry sinus rhythm at 71. Dr Bruno Notified, due to patient requesting morphine .Will give morphine as ordered with NS bolus as ordered.
[2022-10-04] MEDS ORDERED: IV NORMAL SALINE 500 ML IV ONE (02:15)
[2022-10-04] MEDS: MORPHINE SULFATE 2 MG/1 ML DISP.SYRIN IVP PRN ×4 (02:42→17:03)
--- NOTE | 2022-10-04 02:44 | NUR ---
B/p up to 104/57. Patient refusing normal saline bolus at this time.
[2022-10-04] MEDS: BLOOD SUGAR DIAGNOSTIC 1 EACH STRIP VI SCH ×4 (06:04→21:00)
[2022-10-04] MEDS: DORZOLAMIDE/TIMOLOL OPHT DROP 10 ML BOTTLE EACHEYE SCH ×2 (09:10→17:00)
[2022-10-04] MEDS: PANTOPRAZOLE SODIUM 40 MG VIAL IV SCH (09:11)
[2022-10-04] MEDS: BRIMONIDINE 0.2% OPHT DROP 10 ML BOTTLE EACHEYE SCH ×2 (09:11→17:00)
[2022-10-04] MEDS: FINASTERIDE 5 MG TABLET PO SCH (09:12)
[2022-10-04] MEDS: ASPIRIN 81 MG TAB.CHEW PO SCH (09:12)
[2022-10-04] MEDS: ATORVASTATIN 10 MG TABLET PO SCH (09:14)
[2022-10-04] MEDS: INSULIN REGULAR, HUMAN 300 UNIT/3 ML VIAL SQ PRN (12:17)
[2022-10-04] MEDS ORDERED: TRAVOPROST 0.004% OPHT DROP 2.5 ML BOTTLE EACHEYE SCH (21:15)
[2022-10-04] MEDS: TAMSULOSIN HCL 0.4 MG CAP.SR.24H PO SCH (21:41)
[2022-10-05] MEDS: ACETAMINOPHEN 325 MG TABLET PO PRN (00:06)
[2022-10-05 01:38] VITALS: BP 113/59
[2022-10-05 05:06] VITALS: BP 106/55
[2022-10-05] MEDS: PANTOPRAZOLE SODIUM 40 MG TABLET.DR PO SCH (06:11)
[2022-10-05] MEDS: BLOOD SUGAR DIAGNOSTIC 1 EACH STRIP VI SCH ×4 (06:22→20:47)
--- NOTE | 2022-10-05 08:15 | NUR ---
FIRST ENCOUNTER WITH THE PATIENT KNOCKED ON THE DOOR AND ENTERED INTRODUCED MYSELF AND ASKED PATIENT HOW HE WAS DOING AND HE ASKED ME WHY I WAS SNEAKING UP ON HIM WHILE HE WAS EATING.REMINDED HIM THAT I KNOCKED FIRST BEFORE I CAME IN AND HE SAID THAT HE WAS EATING SO I ASKED HIM IF I SHOULD COME BACK BECAUSE I ALSO WANTED TO GIVE HIM HIS MORNING MEDICATIONS AND HE SAID YES SO I LEFT.
[2022-10-05] MEDS: DORZOLAMIDE/TIMOLOL OPHT DROP 10 ML BOTTLE EACHEYE SCH ×2 (09:51→17:09)
[2022-10-05] MEDS: FINASTERIDE 5 MG TABLET PO SCH (09:51)
[2022-10-05] MEDS: ASPIRIN 81 MG TAB.CHEW PO SCH (09:51)
[2022-10-05] MEDS: ATORVASTATIN 10 MG TABLET PO SCH (09:51)
[2022-10-05] MEDS: BRIMONIDINE 0.2% OPHT DROP 10 ML BOTTLE EACHEYE SCH ×2 (09:52→17:09)
--- NOTE | 2022-10-05 11:30 | NUR ---
PATIENT HAS NO IV ACCESS AND IS REQUESTING FOR MORPHINE SO MANY PERIPHERAL ATTEMPTS HAS FAILED MD AWARE WITH ORDERED FOR A MID LINE AND NOTED
[2022-10-05 11:35] VITALS: BP 105/47
--- NOTE | 2022-10-05 12:00 | NUR ---
MID LINE INSERTED TO HIS RIGHT UPPER ARM ORDERED.
[2022-10-05] MEDS: MORPHINE SULFATE 2 MG/1 ML DISP.SYRIN IVP PRN ×3 (12:09→21:00)
--- NOTE | 2022-10-05 12:09 | NUR ---
MID LINE INSERTED TO HIS RIGHT UPPER ARM GAUGE 18 WITH ONE ATTEMPT MADE COMFORTABLE. Addendum: 10/05/22 at 1245 by WALI NICKERSON RN ERROR WRONG TIME
--- NOTE | 2022-10-05 12:09 | NUR ---
PATIENT C/O HAVE MID STERNAL PAIN MEDICATED WITH MORPHINE AT THIS TIME ORDERED WILL OBSERVE.
[2022-10-05] MEDS: INSULIN REGULAR, HUMAN 300 UNIT/3 ML VIAL SQ PRN ×2 (12:19→20:49)
[2022-10-05 16:00] VITALS: BP 99/57
--- NOTE | 2022-10-05 17:16 | NUR ---
C/O HAVING GENERALIZED PAIN REQUESTING FOR HIS MORPHINE MEDICATED ORDERED.
[2022-10-05] MEDS: LATANOPROST OPHT DROP 2.5 ML BOTTLE EACHEYE SCH (20:46)
[2022-10-05] MEDS: TAMSULOSIN HCL 0.4 MG CAP.SR.24H PO SCH (20:47)
[2022-10-05 20:53] VITALS: BP 112/60
[2022-10-06 00:25] VITALS: BP 102/56
[2022-10-06] MEDS: MORPHINE SULFATE 2 MG/1 ML DISP.SYRIN IVP PRN ×6 (01:23→22:45)
[2022-10-06 04:52] VITALS: BP 107/77
[2022-10-06] MEDS: PANTOPRAZOLE SODIUM 40 MG TABLET.DR PO SCH (07:00)
[2022-10-06] MEDS: BLOOD SUGAR DIAGNOSTIC 1 EACH STRIP VI SCH ×4 (07:35→21:41)
--- NOTE | 2022-10-06 07:52 | NUR ---
PER THE NOC RN PROTONIX ALREADY GIVEN TODAY BUT SCANNING DID NOT GO THROUGH.
[2022-10-06] MEDS: ASPIRIN 81 MG TAB.CHEW PO SCH (08:37)
[2022-10-06] MEDS: FINASTERIDE 5 MG TABLET PO SCH (08:38)
[2022-10-06] MEDS: ATORVASTATIN 10 MG TABLET PO SCH (08:38)
[2022-10-06] MEDS: INSULIN REGULAR, HUMAN 300 UNIT/3 ML VIAL SQ PRN ×3 (08:41→21:50)
[2022-10-06] MEDS: DORZOLAMIDE/TIMOLOL OPHT DROP 10 ML BOTTLE EACHEYE SCH ×2 (08:42→16:26)
[2022-10-06] MEDS: BRIMONIDINE 0.2% OPHT DROP 10 ML BOTTLE EACHEYE SCH ×2 (08:42→16:26)
[2022-10-06 12:00] VITALS: BP 116/56
--- NOTE | 2022-10-06 14:19 | NUR ---
PATIENT IS REQUESTING FOR A HIGHER DOSE OF MORPHINE STATED THAT THE 2 MG WAS NOT ENOUGH STATED THAT DR HILLS S [employer]SE[employer] TRIMMING MACHINE OPERATOR HAD PROMISED TO GIVE HIM A HIGHER DOSE SO I SENT A MESSAGE TO DR HILLS AND HE RETURNED CALL WITH NO NEW ORDERS PATIENT NOTIFIED STATED TO JUST GO AHEAD AND GIVE HIM THE 2 MG ORDERED.
[2022-10-06 16:04] VITALS: BP 105/64
--- NOTE | 2022-10-06 17:46 | NUR ---
PATIENT IS RESTING IN BED PAIN MEDICATIONS GIVEN ORDERED MADE COMFORTABLE REMAINS ON ROOM AIR WITH NO SOB NOT IN DISTRESS AT THIS TIME.
[2022-10-06 20:00] VITALS: BP 109/65
[2022-10-06] MEDS: TAMSULOSIN HCL 0.4 MG CAP.SR.24H PO SCH (21:40)
[2022-10-06] MEDS: LATANOPROST OPHT DROP 2.5 ML BOTTLE EACHEYE SCH (21:40)
[2022-10-07] MEDS: MORPHINE SULFATE 2 MG/1 ML DISP.SYRIN IVP PRN ×5 (03:46→23:57)
--- NOTE | 2022-10-07 03:54 | NUR ---
Restraints removed at 2310. Pt calm cooperative. sleeping for short periods. calm when awake not pulling lines.
[2022-10-07] MEDS: PANTOPRAZOLE SODIUM 40 MG TABLET.DR PO SCH (06:31)
[2022-10-07 07:24] LABS: HEMATOCRIT 40.7 % (36.7-47.1); MEAN CORPUSCULAR HEMOGLOBIN 29.1 uug (23.8-33.4); MEAN CORPUSCULAR VOLUME 89.7 fL (73.0-96.2); PLATELET COUNT (AUTO) 157 K/uL (152-348)
[2022-10-07 07:35] LABS: CREATININE 1.1 mg/dL (0.6-1.3); MAGNESIUM 1.9 mg/dL (1.8-2.4); PHOSPHOROUS 3.2 mg/dL (2.5-4.9); POTASSIUM 3.9 mmol/L (3.5-5.1)
[2022-10-07] MEDS: BLOOD SUGAR DIAGNOSTIC 1 EACH STRIP VI SCH ×4 (07:36→20:04)
[2022-10-07] MEDS: INSULIN REGULAR, HUMAN 300 UNIT/3 ML VIAL SQ PRN ×3 (07:50→20:28)
[2022-10-07] MEDS: ASPIRIN 81 MG TAB.CHEW PO SCH (08:06)
[2022-10-07] MEDS: FINASTERIDE 5 MG TABLET PO SCH (08:06)
[2022-10-07] MEDS: ATORVASTATIN 10 MG TABLET PO SCH (08:06)
[2022-10-07] MEDS: BRIMONIDINE 0.2% OPHT DROP 10 ML BOTTLE EACHEYE SCH ×2 (08:07→16:42)
[2022-10-07] MEDS: DORZOLAMIDE/TIMOLOL OPHT DROP 10 ML BOTTLE EACHEYE SCH ×2 (08:07→16:42)
[2022-10-07 11:44] VITALS: BP 111/62
[2022-10-07 15:46] VITALS: BP 132/62
[2022-10-07 20:00] VITALS: BP_SYST 107; BP_SYST 127; BP_DIAS 49; BP_DIAS 79
[2022-10-07] MEDS: TAMSULOSIN HCL 0.4 MG CAP.SR.24H PO SCH (20:04)
[2022-10-07] MEDS: LATANOPROST OPHT DROP 2.5 ML BOTTLE EACHEYE SCH (20:05)
[2022-10-08 04:00] VITALS: BP 101/54
[2022-10-08] MEDS: MORPHINE SULFATE 2 MG/1 ML DISP.SYRIN IVP PRN ×2 (05:09→10:24)
[2022-10-08] MEDS: BLOOD SUGAR DIAGNOSTIC 1 EACH STRIP VI SCH ×3 (06:02→16:30)
[2022-10-08] MEDS: PANTOPRAZOLE SODIUM 40 MG TABLET.DR PO SCH (06:02)
[2022-10-08 06:30] LABS: HEMATOCRIT 41.3 % (36.7-47.1); MEAN CORPUSCULAR HEMOGLOBIN 29.3 uug (23.8-33.4); MEAN CORPUSCULAR VOLUME 90.2 fL (73.0-96.2); PLATELET COUNT (AUTO) 155 K/uL (152-348)
[2022-10-08 06:39] LABS: CREATININE 1.2 mg/dL (0.6-1.3); MAGNESIUM 1.9 mg/dL (1.8-2.4); PHOSPHOROUS 3.5 mg/dL (2.5-4.9); POTASSIUM 3.8 mmol/L (3.5-5.1)
[2022-10-08] MEDS: FINASTERIDE 5 MG TABLET PO SCH (10:21)
[2022-10-08] MEDS: ASPIRIN 81 MG TAB.CHEW PO SCH (10:21)
[2022-10-08] MEDS: ATORVASTATIN 10 MG TABLET PO SCH (10:21)
[2022-10-08] MEDS: DORZOLAMIDE/TIMOLOL OPHT DROP 10 ML BOTTLE EACHEYE SCH ×2 (10:22→17:00)
[2022-10-08] MEDS: BRIMONIDINE 0.2% OPHT DROP 10 ML BOTTLE EACHEYE SCH ×2 (10:22→17:00)
[2022-10-08 11:39] VITALS: BP 94/43
[2022-10-08] MEDS: NUTRISOURCE FIBER 4 GM PACKET PO SCH ×2 (13:35→17:47)
[2022-10-08] MEDS: INSULIN REGULAR, HUMAN 300 UNIT/3 ML VIAL SQ PRN (13:39)
[2022-10-08 15:58] VITALS: BP 102/56
--- NOTE | 2022-10-08 19:17 | NUR ---
PT REQUESTED DISCHARGE FROM DREDGING INSPECTOR PT WAS GIVEN MEDICATION ORDERED NO SIGNS OF DISTRESS NOTED. PT ALSO WAS GIVEN HOME MEDICATION PHARMACY NO SIGNS OF DISTRESS NOTED. PT WAS DISCHAGED TO ACCOMPANYING VEHICLE ACCOMPANIED BY DUAL RATE SUPERVISOR. WILL ENDORSE TO EVENING NURSE.
== END 2022-10-08 19:10 | disposition home or self-care (01) | DRG 206 ==
LOC: ER 18:10 → TRANSITION 22:05 → TELE3 23:22 → MEDSURG3 10-06 09:51
PROVIDERS: ADMIT Nurse Practitioner Acute Care; ATTEND Nurse Practitioner Acute Care
PROC: 05H533Z Insertion of Infusion Device into Right Subclavian Vein, Percutaneous Approach (ICD-10-PCS; principal; 2022-10-05)
PROC: B546ZZA Ultrasonography of Right Subclavian Vein, Guidance (ICD-10-PCS; 2022-10-05)
DX: M94.0 Chondrocostal junction syndrome [Tietze] (principal); I50.32 Chronic diastolic (congestive) heart failure; I11.0 Hypertensive heart disease with heart failure; I25.10 Atherosclerotic heart disease of native coronary artery without angina pectoris; H40.9 Unspecified glaucoma; Z79.01 Long term (current) use of anticoagulants; Z86.711 Personal history of pulmonary embolism; Z95.0 Presence of cardiac pacemaker; E11.9 Type 2 diabetes mellitus without complications; I25.2 Old myocardial infarction; E78.5 Hyperlipidemia, unspecified; Z79.84 Long term (current) use of oral hypoglycemic drugs; Z20.822 Contact with and (suspected) exposure to COVID-19; Z76.5 Malingerer [conscious simulation]
CPT/HCPCS: 36415; 71045; 78580; 83735; 84100; 84443; 84481; 84484; 85025; 93005; A4663; A9540; C9113; G0378; J1815; J2270; J7040; U0003

== ENCOUNTER 2022-11-04 11:52 | Emergency (ER) | payer MEDICARE, OTHER ==
[~2022-11-04] VITALS: Ht 172.7 cm; Wt 88.5 kg
[2022-11-04] MEDS ORDERED: ACETAMINOPHEN 325 MG TABLET PO ONE (12:30)
[2022-11-04] MEDS ORDERED: ASPIRIN 81 MG TAB.CHEW PO ONE (12:30)
--- NOTE | 2022-11-04 12:31 | NUR ---
67 years old male alert, oriented x4 presents to er c/o chest pain placed on shelter monitor continuous puls ox vss, lab pending, no nausea vomiting, no sob.
[2022-11-04] MEDS ORDERED: ACETAMINOPHEN 325 MG TABLET ONE (12:33)
[2022-11-04] MEDS ORDERED: ASPIRIN 81 MG TAB.CHEW ONE (12:33)
[2022-11-04 12:39] LABS: HEMATOCRIT 41.4 % (36.7-47.1); MEAN CORPUSCULAR VOLUME 89.9 fL (73.0-96.2); PLATELET COUNT (AUTO) 163 K/uL (152-348)
[2022-11-04 12:50] LABS: POTASSIUM 3.9 mmol/L (3.5-5.1)
[2022-11-04 13:05] LABS: BILIRUBIN,TOTAL 0.5 mg/dL (0.2-1.0)
[2022-11-04 16:03] VITALS: BP 136/80
--- NOTE | 2022-11-04 16:04 | NUR ---
patient reassess condition stable d/c home with instructions after care reviewed understood left er via self ambulatory with steady gait no pain no sob.
== END 2022-11-04 16:05 | disposition home or self-care (01) ==
LOC: ER 11:52
DX: R07.9 Chest pain, unspecified (principal); E78.5 Hyperlipidemia, unspecified; E11.9 Type 2 diabetes mellitus without complications; I50.9 Heart failure, unspecified; Z79.01 Long term (current) use of anticoagulants; Z79.899 Other long term (current) drug therapy; Z88.6 Allergy status to analgesic agent; Z91.041 Radiographic dye allergy status; Z91.018 Allergy to other foods; H40.9 Unspecified glaucoma; Z79.84 Long term (current) use of oral hypoglycemic drugs; Z86.711 Personal history of pulmonary embolism; Z95.0 Presence of cardiac pacemaker; G89.29 Other chronic pain
CPT/HCPCS: 36415; 71045; 84484; 85025; 85610; A4663

== ENCOUNTER 2022-12-17 16:48 | Inpatient (IN) | payer MEDICARE, OTHER ==
[~2022-12-17] VITALS: Ht 172.7 cm; Wt 88.5 kg
[2022-12-17 17:32] LABS: MEAN CORPUSCULAR HEMOGLOBIN 29.5 uug (23.8-33.4); MEAN CORPUSCULAR VOLUME 90.5 fL (73.0-96.2); PLATELET COUNT (AUTO) 183 K/uL (152-348)
[2022-12-17] MEDS ORDERED: ASPIRIN 81 MG TAB.CHEW ONE (17:58)
[2022-12-17] MEDS ORDERED: NITROGLYCERIN 0.4 MG/TAB BOTTLE SL ONE ×2 (17:59→18:00)
[2022-12-17] MEDS ORDERED: ASPIRIN 81 MG TAB.CHEW PO ONE (18:00)
--- NOTE | 2022-12-17 18:03 | NUR ---
PT IS IN ROOM #1A. DR MONROE EVALUATED THE PT.
[2022-12-17 18:07] LABS: CARBON DIOXIDE 25 mmol/L (21-32); CHLORIDE 106 mmol/L (98-107); CREATININE 1.1 mg/dL (0.6-1.3); GLUCOSE 190 mg/dL (74-106); POTASSIUM 4.4 mmol/L (3.5-5.1); UREA NITROGEN, BLOOD 12 mg/dL (7-18)
[2022-12-17] MEDS ORDERED: METOPROLOL TARTRATE 5 MG/5 ML VIAL IVP ONE ×2 (19:41→19:45)
[2022-12-17] MEDS ORDERED: METOPROLOL TARTRATE 50 MG TABLET ONE (19:42)
[2022-12-17] MEDS ORDERED: PROCHLORPERAZINE EDISYLATE 10 MG/2 ML VIAL ONE (19:42)
[2022-12-17] MEDS ORDERED: METOPROLOL TARTRATE 50 MG TABLET PO ONE (19:45)
[2022-12-17] MEDS ORDERED: PROCHLORPERAZINE EDISYLATE 10 MG/2 ML VIAL IV ONE (19:45)
[2022-12-17] MEDS ORDERED: MORPHINE SULFATE 4 MG/1 ML DISP.SYRIN IV ONE (19:45)
[2022-12-17] MEDS ORDERED: MORPHINE SULFATE 2 MG/1 ML DISP.SYRIN ONE (19:56)
--- NOTE | 2022-12-17 20:38 | NUR ---
Per Dr. Rockwell, patient is to be transfered for higher level of care. Spoke to [facility]. Faxed Clinical Data . Waiting for call back. Pending transfer.
--- NOTE | 2022-12-17 20:51 | NUR ---
Per Dr. Rockwell patient to be kept NPO.
--- NOTE | 2022-12-17 21:33 | NUR ---
Called [facility] Transfer Center, no avaliable beds.
--- NOTE | 2022-12-17 22:08 | NUR ---
Called [facility]. They stated they are currently reviewing clinical data packet.
--- NOTE | 2022-12-17 22:30 | NUR ---
Called [place] transfer odem, Dr. Rockwell spoke to Dr. Ng for cardiac cath consult. Patient not candidate for transfer.
--- NOTE | 2022-12-17 22:31 | NUR ---
Received call from [place], no beds avaliable.
--- NOTE | 2022-12-17 22:50 | NUR ---
Called [facility] cardiology for panel call. Dr. Rockwell spoke to Dr. Diaz. Patient will be admitted to tele floor by Dr. Diaz.
--- NOTE | 2022-12-17 23:00 | NUR ---
Patient will be admitted to tele bed third floor room 305
--- NOTE | 2022-12-17 23:17 | NUR ---
Called third floor to give report to RN. RN not avaliable. Waiting for call back.
--- NOTE | 2022-12-17 23:28 | NUR ---
Report given to Rukhsana DEXTER
--- NOTE | 2022-12-18 01:15 | NUR ---
Patient has been admitted by Sakina figueroa NP.
[2022-12-18] MEDS ORDERED: ONDANSETRON 4 MG/2 ML VIAL IV PRN (01:30)
[2022-12-18] MEDS ORDERED: MAGNESIUM HYDROXIDE 30 ML LIQUID UDC PO PRN (01:30)
[2022-12-18] MEDS ORDERED: DEXTROSE 50% 50 ML DISP.SYRIN IV PRN (01:30)
[2022-12-18] MEDS ORDERED: ZOLPIDEM 5 MG TABLET PO PRN (01:30)
[2022-12-18] MEDS ORDERED: REMEDY ESSENTIAL ZINC PASTE 113 GM TP PRN (01:30)
[2022-12-18 02:00] VITALS: BP 117/55
--- NOTE | 2022-12-18 02:05 | NUR ---
Patient taken to third floor room 305 via gurney with personal belongings. Patient in stable condition, no signs of distress. Rukhsana DEXTER aware of patient's arrival.
--- NOTE | 2022-12-18 03:38 | NUR ---
Patient admitted to room 305 per carmel from ER with diagnosis Chest pain and cardiac ischemic, AAOx4,
[2022-12-18 04:00] VITALS: BP 118/58
[2022-12-18] MEDS: BLOOD SUGAR DIAGNOSTIC 1 EACH STRIP VI SCH ×4 (06:17→21:55)
[2022-12-18 08:00] VITALS: BP 116/62
--- NOTE | 2022-12-18 08:00 | NUR ---
Received pt. lying in bed asleep, comfortably sleeping. On gambling monitor with pace maker A and AV pacing at 88bpm no signs of distress or discomfort. IV site on Right upper arm intact and clean. O2 saturation at 99%, vital signs stable. Observed accordingly.
[2022-12-18] MEDS: INSULIN REGULAR, HUMAN 300 UNIT/3 ML VIAL SQ PRN ×4 (08:04→22:20)
[2022-12-18] MEDS: FINASTERIDE 5 MG TABLET PO SCH (08:40)
[2022-12-18] MEDS: ASPIRIN 81 MG TAB.CHEW PO SCH (08:41)
[2022-12-18] MEDS: APIXABAN 5 MG TABLET PO SCH ×2 (08:41→22:08)
[2022-12-18] MEDS ORDERED: ATORVASTATIN 10 MG TABLET PO SCH (09:00)
[2022-12-18] MEDS ORDERED: BRIMONIDINE-P 0.1% OPHTH DROP 5 ML DROPS EACHEYE SCH ×2 (09:00)
[2022-12-18] MEDS ORDERED: DORZOLAMIDE/TIMOLOL OPHT DROP 10 ML BOTTLE EACHEYE SCH (09:00)
--- NOTE | 2022-12-18 09:00 | NUR ---
Medications given and recorded, complaining of pain Tylenol tab PO given as ordered.
[2022-12-18] MEDS: DORZOLAMIDE/TIMOLOL OPHT DROP 10 ML BOTTLE EACHEYE SCH ×2 (10:28→16:34)
[2022-12-18] MEDS: BRIMONIDINE 0.2% OPHT DROP 10 ML BOTTLE EACHEYE SCH ×2 (10:28→16:35)
[2022-12-18] MEDS: ACETAMINOPHEN 325 MG TABLET PO PRN (10:49)
[2022-12-18 11:48] VITALS: BP 117/67
--- NOTE | 2022-12-18 14:23 | NUR ---
Seen patient awake, alert in bed, no acute changes from morning shift. Needs attended.
[2022-12-18 15:33] VITALS: BP 105/55
--- NOTE | 2022-12-18 18:00 | NUR ---
Patient complaining of chest and back pain score of 7, relayed symptoms to Dr. Yan made orders and carried out. 1839 - Vital signs taken and recorded, Nitroglycerin 0.4mg tab SL given as ordered. Closely monitored. Addendum: 12/18/22 at 1853 by LIDA SMITH RN 184- Another dose of Nitroglycerin 0.4mg tab given as ordered for pain
[2022-12-18 18:30] VITALS: BP 111/63
[2022-12-18] MEDS ORDERED: HYDROCODONE/APAP 5-325MG TABLET PO PRN (18:30)
[2022-12-18] MEDS: NITROGLYCERIN 0.4 MG/TAB BOTTLE SL PRN ×2 (18:40→18:47)
--- NOTE | 2022-12-18 19:45 | NUR ---
Received report from outgoing nurse patient had a blood pressure of 86/62 after two doses of nitroglycerin given for c/o chest pain. this nurse attempts to check patient blood pressure, patient refused and requested to speak with the canvas goods supervisor or charge nurse. Nurse in charge made aware.
[2022-12-18] MEDS: TAMSULOSIN HCL 0.4 MG CAP.SR.24H PO SCH (22:07)
[2022-12-18] MEDS: LATANOPROST OPHT DROP 2.5 ML BOTTLE EACHEYE SCH (22:07)
[2022-12-18] MEDS: ATORVASTATIN 10 MG TABLET PO SCH (22:07)
[2022-12-19 04:00] VITALS: BP 129/56
[2022-12-19 06:20] LABS: HEMATOCRIT 38.6 % (36.7-47.1); MEAN CORPUSCULAR HEMOGLOBIN 29.9 uug (23.8-33.4); MEAN CORPUSCULAR VOLUME 90.2 fL (73.0-96.2); PLATELET COUNT (AUTO) 163 K/uL (152-348)
[2022-12-19] MEDS: BLOOD SUGAR DIAGNOSTIC 1 EACH STRIP VI SCH ×4 (06:34→21:17)
[2022-12-19 06:44] LABS: MAGNESIUM 1.9 mg/dL (1.8-2.4); PHOSPHOROUS 3.2 mg/dL (2.5-4.9)
--- NOTE | 2022-12-19 08:00 | NUR ---
PT REFUSED MORNING VITAL SIGNS
[2022-12-19] MEDS: ASPIRIN 81 MG TAB.CHEW PO SCH (08:16)
[2022-12-19] MEDS: FINASTERIDE 5 MG TABLET PO SCH (08:16)
[2022-12-19] MEDS: APIXABAN 5 MG TABLET PO SCH ×2 (08:17→20:48)
[2022-12-19] MEDS: INSULIN REGULAR, HUMAN 300 UNIT/3 ML VIAL SQ PRN ×3 (08:20→20:58)
[2022-12-19] MEDS: BRIMONIDINE 0.2% OPHT DROP 10 ML BOTTLE EACHEYE SCH ×2 (08:44→16:33)
[2022-12-19] MEDS: DORZOLAMIDE/TIMOLOL OPHT DROP 10 ML BOTTLE EACHEYE SCH ×2 (08:44→16:33)
--- NOTE | 2022-12-19 09:03 | NUR ---
RECEIVED PT AWAKE AND ON THE BATHROOM. PT AOX4. AMBULATORY IN NO ACUTE DISTRESS. NO COMPLAIN OF PAIN. SAFETY MEASURE MAINTAINED. WILL CONT TO MONITOR
[2022-12-19 11:56] VITALS: BP 112/61
--- NOTE | 2022-12-19 12:18 | NUR ---
PT STATES THAT HE FILED AN APPEAL FOR HIS DISCHARGE. AND CM MADE AWARE.
--- NOTE | 2022-12-19 14:23 | NUR ---
DISCHARGE CANCELLED PT FILE AN APPEAL [id number]. CM AWARE.
[2022-12-19 15:56] VITALS: BP 129/83
[2022-12-19 20:34] VITALS: BP 132/75
[2022-12-19] MEDS: ATORVASTATIN 10 MG TABLET PO SCH (20:47)
[2022-12-19] MEDS: TAMSULOSIN HCL 0.4 MG CAP.SR.24H PO SCH (20:47)
[2022-12-19] MEDS: LATANOPROST OPHT DROP 2.5 ML BOTTLE EACHEYE SCH (20:47)
[2022-12-19] MEDS: ACETAMINOPHEN 325 MG TABLET PO PRN (20:55)
--- NOTE | 2022-12-20 | NUR ---
Patient refused vital signs at this time.
[2022-12-20 04:10] VITALS: BP 120/70
--- NOTE | 2022-12-20 06:00 | NUR ---
Patient informs this nurse that the BUCKLE ATTACHER woke him up at 0530 AM to ask him how many times he went to the restroom and he was not too happy about it. Patient was also reluctant having his vital signs check at 0400 AM told the BUCKLE ATTACHER that it's not necessary. This nurse explain to patient his vital signs is checked base on his condition and it is scheduled every four hour. Patient verbalized understanding at that time.
[2022-12-20] MEDS: BLOOD SUGAR DIAGNOSTIC 1 EACH STRIP VI SCH ×4 (06:39→20:50)
--- NOTE | 2022-12-20 07:07 | NUR ---
Report given to oncoming nurse about patients' concerns being waking up at certain time during the night, staff to follow up on patient preference and comply with hospital policies and procedures.
[2022-12-20] MEDS: ASPIRIN 81 MG TAB.CHEW PO SCH (08:11)
[2022-12-20] MEDS: FINASTERIDE 5 MG TABLET PO SCH (08:11)
[2022-12-20] MEDS: BRIMONIDINE 0.2% OPHT DROP 10 ML BOTTLE EACHEYE SCH ×2 (08:11→16:29)
[2022-12-20] MEDS: DORZOLAMIDE/TIMOLOL OPHT DROP 10 ML BOTTLE EACHEYE SCH ×2 (08:11→16:29)
[2022-12-20] MEDS: APIXABAN 5 MG TABLET PO SCH ×2 (08:13→20:50)
[2022-12-20] MEDS: INSULIN REGULAR, HUMAN 300 UNIT/3 ML VIAL SQ PRN ×3 (08:13→20:51)
[2022-12-20] MEDS ORDERED: TRAMADOL HCL 50 MG TABLET PO PRN (14:00)
--- NOTE | 2022-12-20 17:00 | NUR ---
PT BLOOD SUGAR WAS 72 EARLIER WENT AGAIN TO RECHECK THE BLOOD SUGAR PT REFUSED ,PT SAID HE HAVE ORANGE JUICE AND PUDDING CHARGE NURSE MADE AWARE
--- NOTE | 2022-12-20 19:30 | NUR ---
Received patient in bed awake alert and oriented x4, in no acute distress. Denies chest pain. He said he is leaving at 0500. Instructed me to wake him up at 0400 and remove his IV line before he leave.
[2022-12-20 20:00] VITALS: BP 113/69
[2022-12-20] MEDS: TAMSULOSIN HCL 0.4 MG CAP.SR.24H PO SCH (20:49)
[2022-12-20] MEDS: ATORVASTATIN 10 MG TABLET PO SCH (20:49)
[2022-12-20] MEDS: LATANOPROST OPHT DROP 2.5 ML BOTTLE EACHEYE SCH (20:59)
--- NOTE | 2022-12-21 04:20 | NUR ---
Patient left in stable condition, refused to have his VS taken, no acute distress noted. Refused to be wheeled downstair stated I will just walk, escorted by staff to the lobby. Refused to sign discharge instructions form. Took all his belongings but refused to sign belonging inventory list.
== END 2022-12-21 04:20 | disposition home or self-care (01) | DRG 206 ==
LOC: ER 16:49 → TELE3 18:55 → MEDSURG3 12-20 12:52
PROVIDERS: ADMIT Nurse Practitioner Acute Care; ATTEND Nurse Practitioner Family
DX: M94.0 Chondrocostal junction syndrome [Tietze] (principal); I50.32 Chronic diastolic (congestive) heart failure; E78.5 Hyperlipidemia, unspecified; Z95.0 Presence of cardiac pacemaker; E11.9 Type 2 diabetes mellitus without complications; H40.9 Unspecified glaucoma; Z86.711 Personal history of pulmonary embolism; R94.31 Abnormal electrocardiogram [ECG] [EKG]; Z79.01 Long term (current) use of anticoagulants; Z91.041 Radiographic dye allergy status; Z79.84 Long term (current) use of oral hypoglycemic drugs; M19.90 Unspecified osteoarthritis, unspecified site; Z88.6 Allergy status to analgesic agent; Z79.899 Other long term (current) drug therapy; Z82.49 Family history of ischemic heart disease and other diseases of the circulatory system; Z98.890 Other specified postprocedural states
CPT/HCPCS: 36415; 71045; 83735; 84100; 84484; 85025; 93005; 93307; A4663; G0378; J0780; J1815; J2270; J3490

== ENCOUNTER 2023-06-01 13:45 | Emergency (ER) | payer MEDICARE, OTHER ==
[~2023-06-01] VITALS: Ht 172.7 cm; Wt 88.5 kg
[2023-06-01 14:58] LABS: BASOPHILS % (AUTO) 0.3 % (0.0-2.0); EOSINOPHILS # (AUTO) 0.2 K/uL (0.0-0.7); EOSINOPHILS % (AUTO) 2.7 % (0.0-7.0); HEMATOCRIT 38.9 % (36.7-47.1); HEMOGLOBIN 12.6 g/dL (12.5-16.3); LYMPHOCYTES # (AUTO) 1.6 K/uL (0.8-4.8); LYMPHOCYTES % (AUTO) 19.4 % (20.5-51.5); MEAN CORPUSCULAR HEMOGLOBIN 28.4 uug (23.8-33.4); MEAN CORPUSCULAR HGB CONC 33 g/dL (32.5-36.3); MEAN CORPUSCULAR VOLUME 87.3 fL (73.0-96.2); MONOCYTES # (AUTO) 0.7 K/uL (0.1-1.30); MONOCYTES % (AUTO) 8.8 % (0.0-11.0); NEUTROPHILS # (AUTO) 5.5 K/uL (1.8-8.9); NEUTROPHILS % (AUTO) 68.8 % (38.5-71.5); PLATELET COUNT (AUTO) 180 K/uL (152-348); RED BLOOD CELL COUNT(AUTO) 4.45 MIL/uL (4.06-5.63); RED CELL DISTRIBUTION WIDTH 17.3 % (12.1-16.2)
[2023-06-01 15:10] LABS: CALCIUM 9.3 mg/dL (8.5-10.1); CARBON DIOXIDE 26 mmol/L (21-32); CHLORIDE 103 mmol/L (98-107); GLUCOSE 122 mg/dL (74-106); POTASSIUM 4.1 mmol/L (3.5-5.1); SODIUM SERUM 140 mmol/L (136-145); UREA NITROGEN, BLOOD 14 mg/dL (7-18)
[2023-06-01 15:20] LABS: DIFFERENTIAL COMMENT 1
[2023-06-01 15:22] LABS: NT-PRO BNP 34 pg/mL (0-125)
[2023-06-01 16:00] VITALS: O2SAT 98
== END 2023-06-01 16:38 | disposition home or self-care (01) ==
LOC: ER 13:45
DX: G89.29 Other chronic pain (principal); R07.89 Other chest pain; M25.562 Pain in left knee; I50.9 Heart failure, unspecified; E11.9 Type 2 diabetes mellitus without complications; Z95.1 Presence of aortocoronary bypass graft; Z88.5 Allergy status to narcotic agent; Z88.7 Allergy status to serum and vaccine; Z88.8 Allergy status to other drugs, medicaments and biological substances; Z79.899 Other long term (current) drug therapy
CPT/HCPCS: 36415; 71045; 73560; 84484; 85025; 93005; A4663

== ENCOUNTER → 2023-08-30 | Emergency (ER) | payer MEDICARE, OTHER ==
[~2023-08-30] VITALS: Ht 172.7 cm; Wt 86.2 kg
[2023-08-30 12:05] LABS: BASOPHILS % (AUTO) 0.6 % (0.0-2.0); EOSINOPHILS # (AUTO) 0.2 K/uL (0.0-0.7); EOSINOPHILS % (AUTO) 2.7 % (0.0-7.0); HEMATOCRIT 37.7 % (36.7-47.1); HEMOGLOBIN 12.1 g/dL (12.5-16.3); LYMPHOCYTES # (AUTO) 1.2 K/uL (0.8-4.8); MEAN CORPUSCULAR HEMOGLOBIN 28.5 uug (23.8-33.4); MEAN CORPUSCULAR HGB CONC 32 g/dL (32.5-36.3); MEAN CORPUSCULAR VOLUME 88.8 fL (73.0-96.2); MONOCYTES # (AUTO) 0.7 K/uL (0.1-1.30); MONOCYTES % (AUTO) 9.8 % (0.0-11.0); NEUTROPHILS % (AUTO) 69.9 % (38.5-71.5); PLATELET COUNT (AUTO) 162 K/uL (152-348); RED BLOOD CELL COUNT(AUTO) 4.25 MIL/uL (4.06-5.63); RED CELL DISTRIBUTION WIDTH 17.3 % (12.1-16.2); WHITE BLOOD COUNT (AUTO) 7.1 K/uL (3.6-10.2)
[2023-08-30 12:14] LABS: CALCIUM 9.7 mg/dL (8.5-10.1); CARBON DIOXIDE 26 mmol/L (21-32); CHLORIDE 110 mmol/L (98-107); DIFFERENTIAL COMMENT 1; GLUCOSE 131 mg/dL (74-106); POTASSIUM 3.6 mmol/L (3.5-5.1); SODIUM SERUM 143 mmol/L (136-145); UREA NITROGEN, BLOOD 13 mg/dL (7-18)
[2023-08-30 12:19] VITALS: O2SAT 100
[2023-08-30 12:27] LABS: ALANINE AMINOTRANSFERASE 16 U/L (16-63); ALBUMIN 3.7 g/dL (3.4-5.0); ALKALINE PHOSPHATASE 72 U/L (50-136); ASPARTATE AMINOTRANSFERASE 10 U/L (15-37); BILIRUBIN,DIRECT 0.1 mg/dL (0.0-0.2); BILIRUBIN,TOTAL 0.5 mg/dL (0.2-1.0); NT-PRO BNP 81 pg/mL (0-125); TOTAL PROTEIN, SERUM 7.2 g/dL (6.4-8.2)
== END | disposition left against medical advice (07) ==
LOC: ER 11:33
DX: R07.89 Other chest pain (principal); I50.9 Heart failure, unspecified; E11.9 Type 2 diabetes mellitus without complications; E78.5 Hyperlipidemia, unspecified; Z95.0 Presence of cardiac pacemaker; Z88.8 Allergy status to other drugs, medicaments and biological substances; Z79.899 Other long term (current) drug therapy
CPT/HCPCS: 36415; 71045; 84484; 85025; A4606; A4663

== ENCOUNTER 2024-01-10 20:57 | Emergency (ER) | payer MEDICARE, OTHER ==
[~2024-01-10] VITALS: Ht 172.7 cm; Wt 83.9 kg
[2024-01-10 23:13] LABS: BASOPHILS # (AUTO) 0.2 K/UL (0.0-0.2); BASOPHILS % (AUTO) 1.9 % (0.0-2.0); DIFFERENTIAL COMMENT 0; EOSINOPHILS # (AUTO) 0.1 K/uL (0.0-0.7); EOSINOPHILS % (AUTO) 1.3 % (0.0-7.0); HEMATOCRIT 41.7 % (36.7-47.1); HEMOGLOBIN 13.8 g/dL (12.5-16.3); LYMPHOCYTES # (AUTO) 1.3 K/uL (0.8-4.8); LYMPHOCYTES % (AUTO) 12.9 % (20.5-51.5); MEAN CORPUSCULAR HEMOGLOBIN 29.5 uug (23.8-33.4); MEAN CORPUSCULAR HGB CONC 33 g/dL (32.5-36.3); MEAN CORPUSCULAR VOLUME 89.5 fL (73.0-96.2); MONOCYTES # (AUTO) 0.6 K/uL (0.1-1.30); MONOCYTES % (AUTO) 6.1 % (0.0-11.0); NEUTROPHILS # (AUTO) 7.7 K/uL (1.8-8.9); NEUTROPHILS % (AUTO) 77.8 % (38.5-71.5); PLATELET COUNT (AUTO) 166 K/uL (152-348); RED BLOOD CELL COUNT(AUTO) 4.66 MIL/uL (4.06-5.63); RED CELL DISTRIBUTION WIDTH 15.2 % (12.1-16.2); WHITE BLOOD COUNT (AUTO) 9.9 K/uL (3.6-10.2)
[2024-01-10 23:24] LABS: CALCIUM 9.6 mg/dL (8.5-10.1); CREATININE 1.1 mg/dL (0.6-1.3); POTASSIUM 3.9 mmol/L (3.5-5.1)
[2024-01-10 23:30] LABS: ALBUMIN 3.7 g/dL (3.4-5.0); BILIRUBIN,TOTAL 0.5 mg/dL (0.2-1.0); TOTAL PROTEIN, SERUM 7.5 g/dL (6.4-8.2)
[2024-01-11] VITALS: BP 118/70; TEMP 98; O2SAT 100
== END 2024-01-11 | disposition home or self-care (01) ==
LOC: ER 20:59
DX: R07.89 Other chest pain (principal); E11.9 Type 2 diabetes mellitus without complications; E78.5 Hyperlipidemia, unspecified; Z98.890 Other specified postprocedural states; Z79.899 Other long term (current) drug therapy; Z60.2 Problems related to living alone; Z88.1 Allergy status to other antibiotic agents
CPT/HCPCS: 36415; 71045; 84484; 85025; 93005; A4606; A4663

== ENCOUNTER 2024-02-09 08:22 | Emergency (ER) | payer MEDICARE, OTHER ==
[~2024-02-09] VITALS: Ht 172.7 cm; Wt 86.2 kg
[2024-02-09 09:11] LABS: BASOPHILS # (AUTO) 0.2 K/UL (0.0-0.2); BASOPHILS % (AUTO) 2.5 % (0.0-2.0); DIFFERENTIAL COMMENT 1; EOSINOPHILS # (AUTO) 0.2 K/uL (0.0-0.7); EOSINOPHILS % (AUTO) 3.4 % (0.0-7.0); HEMATOCRIT 37.9 % (36.7-47.1); HEMOGLOBIN 12.6 g/dL (12.5-16.3); LYMPHOCYTES # (AUTO) 0.7 K/uL (0.8-4.8); MEAN CORPUSCULAR HEMOGLOBIN 29.6 uug (23.8-33.4); MEAN CORPUSCULAR HGB CONC 33 g/dL (32.5-36.3); MEAN CORPUSCULAR VOLUME 89.4 fL (73.0-96.2); MONOCYTES # (AUTO) 0.4 K/uL (0.1-1.30); MONOCYTES % (AUTO) 6.5 % (0.0-11.0); NEUTROPHILS # (AUTO) 5.3 K/uL (1.8-8.9); NEUTROPHILS % (AUTO) 77.6 % (38.5-71.5); PLATELET COUNT (AUTO) 159 K/uL (152-348); RED BLOOD CELL COUNT(AUTO) 4.24 MIL/uL (4.06-5.63); RED CELL DISTRIBUTION WIDTH 15.1 % (12.1-16.2); WHITE BLOOD COUNT (AUTO) 6.8 K/uL (3.6-10.2)
[2024-02-09 09:19] LABS: CALCIUM 9.2 mg/dL (8.5-10.1); CREATININE 1.2 mg/dL (0.6-1.3); POTASSIUM 3.9 mmol/L (3.5-5.1)
[2024-02-09] MEDS: ACETAMINOPHEN ES 500 MG TABLET PO ONE (09:24)
[2024-02-09] MEDS ORDERED: ACETAMINOPHEN ES 500 MG TABLET ONE (09:25)
[2024-02-09 09:32] LABS: ALBUMIN 3.7 g/dL (3.4-5.0); BILIRUBIN,DIRECT 0.1 mg/dL (0.0-0.2); BILIRUBIN,TOTAL 0.6 mg/dL (0.2-1.0); TOTAL PROTEIN, SERUM 7.3 g/dL (6.4-8.2)
[2024-02-09 10:44] VITALS: BP 114/72; TEMP 97.8; O2SAT 99
== END 2024-02-09 10:45 | disposition home or self-care (01) ==
LOC: ER 08:22
DX: R07.89 Other chest pain (principal); I50.9 Heart failure, unspecified; E11.9 Type 2 diabetes mellitus without complications; Z98.890 Other specified postprocedural states; Z79.899 Other long term (current) drug therapy; Z60.2 Problems related to living alone
CPT/HCPCS: 36415; 71045; 84484; 85025; 93005; A4606; A4663; A9150

== ENCOUNTER 2024-06-07 10:57 | Emergency (ER) | payer MEDICARE, OTHER ==
[~2024-06-07] VITALS: Ht 172.7 cm; Wt 87.1 kg
[2024-06-07 11:54] LABS: BASOPHILS # (AUTO) 0.1 K/UL (0.0-0.2); BASOPHILS % (AUTO) 2.3 % (0.0-2.0); EOSINOPHILS # (AUTO) 0.2 K/uL (0.0-0.7); EOSINOPHILS % (AUTO) 4.3 % (0.0-7.0); HEMATOCRIT 41.7 % (36.7-47.1); HEMOGLOBIN 13.3 g/dL (12.5-16.3); LYMPHOCYTES # (AUTO) 0.6 K/uL (0.8-4.8); LYMPHOCYTES % (AUTO) 12.9 % (20.5-51.5); MEAN CORPUSCULAR HEMOGLOBIN 27.7 uug (23.8-33.4); MEAN CORPUSCULAR HGB CONC 32 g/dL (32.5-36.3); MEAN CORPUSCULAR VOLUME 87.1 fL (73.0-96.2); MONOCYTES # (AUTO) 0.5 K/uL (0.1-1.30); MONOCYTES % (AUTO) 9.4 % (0.0-11.0); NEUTROPHILS # (AUTO) 3.4 K/uL (1.8-8.9); NEUTROPHILS % (AUTO) 71.1 % (38.5-71.5); PLATELET COUNT (AUTO) 192 K/uL (152-348); RED BLOOD CELL COUNT(AUTO) 4.79 MIL/uL (4.06-5.63); RED CELL DISTRIBUTION WIDTH 15.5 % (12.1-16.2); WHITE BLOOD COUNT (AUTO) 4.8 K/uL (3.6-10.2)
[2024-06-07 11:55] LABS: CALCIUM 9.5 mg/dL (8.5-10.1); CARBON DIOXIDE 24 mmol/L (21-32); CHLORIDE 106 mmol/L (98-107); CREATININE 1.1 mg/dL (0.6-1.3); GLUCOSE 148 mg/dL (74-106); POTASSIUM 3.7 mmol/L (3.5-5.1); SODIUM SERUM 141 mmol/L (136-145); UREA NITROGEN, BLOOD 18 mg/dL (7-18)
[2024-06-07 11:57] LABS: DIFFERENTIAL COMMENT 1
[2024-06-07 12:04] LABS: ALANINE AMINOTRANSFERASE 14 U/L (16-63); ALBUMIN 3.8 g/dL (3.4-5.0); ALKALINE PHOSPHATASE 84 U/L (50-136); ASPARTATE AMINOTRANSFERASE 9 U/L (15-37); BILIRUBIN,DIRECT 0.1 mg/dL (0.0-0.2); BILIRUBIN,TOTAL 0.7 mg/dL (0.2-1.0); TOTAL PROTEIN, SERUM 7.8 g/dL (6.4-8.2)
[2024-06-07 12:19] LABS: LIPASE 19 U/L (16-77)
[2024-06-07 14:00] VITALS: O2SAT 97
== END 2024-06-07 14:02 | disposition home or self-care (01) ==
LOC: ER 10:57
DX: N20.0 Calculus of kidney (principal); K80.20 Calculus of gallbladder without cholecystitis without obstruction; N40.0 Benign prostatic hyperplasia without lower urinary tract symptoms; G89.29 Other chronic pain; R07.89 Other chest pain; R10.9 Unspecified abdominal pain; I50.9 Heart failure, unspecified; E11.9 Type 2 diabetes mellitus without complications; Z79.4 Long term (current) use of insulin; Z79.899 Other long term (current) drug therapy; Z98.890 Other specified postprocedural states; Z60.2 Problems related to living alone; Z91.040 Latex allergy status
CPT/HCPCS: 36415; 71045; 83690; 84484; 85025; A4606; A4663

== ENCOUNTER 2025-08-08 19:58 | Emergency (ER) | payer MEDICARE, OTHER ==
[~2025-08-08] VITALS: Ht 172.7 cm; Wt 83.9 kg
[~2025-08-08 19:58] MED LIST changes: -TAMS-3 PO; +TAMS0.4C PO
[2025-08-08 21:09] LABS: PLATELET COUNT (AUTO) 167 K/uL (152-348); RED BLOOD CELL COUNT(AUTO) 4.65 MIL/uL (4.06-5.63); RED CELL DISTRIBUTION WIDTH 14.7 % (12.1-16.2); WHITE BLOOD COUNT (AUTO) 7.7 K/uL (3.6-10.2)
[2025-08-08 21:15] LABS: CREATININE 1.1 mg/dL (0.6-1.3); SODIUM SERUM 141 mmol/L (136-145); UREA NITROGEN, BLOOD 18 mg/dL (7-18)
[2025-08-08 21:19] LABS: ASPARTATE AMINOTRANSFERASE 10 U/L (15-37); TOTAL PROTEIN, SERUM 7.5 g/dL (6.4-8.2)
[2025-08-08 23:00] VITALS: BP 137/72
[2025-08-08 23:19] VITALS: BP 133/70; O2SAT 99
== END 2025-08-08 23:19 | disposition home or self-care (01) ==
LOC: ER 19:58
DX: R07.89 Other chest pain (principal); E11.9 Type 2 diabetes mellitus without complications; E78.5 Hyperlipidemia, unspecified; G89.4 Chronic pain syndrome; H40.9 Unspecified glaucoma; I25.9 Chronic ischemic heart disease, unspecified; I50.9 Heart failure, unspecified; Z79.01 Long term (current) use of anticoagulants; Z79.84 Long term (current) use of oral hypoglycemic drugs; Z79.899 Other long term (current) drug therapy; Z86.711 Personal history of pulmonary embolism; Z88.7 Allergy status to serum and vaccine; Z88.8 Allergy status to other drugs, medicaments and biological substances; Z95.0 Presence of cardiac pacemaker; Z60.2 Problems related to living alone
CPT/HCPCS: 36415; 71045; 84484; 85025; A4606; A4663